=== PATIENT | female | born 1990 | race Caucasian/White ===

== ENCOUNTER 2024-08-01 11:25 | Emergency (ER) | payer OTHER, SELFPAY ==
--- NOTE | 2024-08-01 11:26 | ED.EAR ---
HPI - Ear Problem General Chief complaint: Ear Stated complaint: Ear Paim Time Seen by Provider: 08/01/24 11:26 Source: patient Mode of arrival: ambulatory Limitations: no limitations History of Present Illness HPI Narrative: Taisha is a 34-year-old female patient presenting to the clinic today with complaints sinus pressure, congestion, bilateral ear pain left greater than right and pain to the left jaw. She reports symptoms have been going on for over the past week. States she had fever last week but that has resolved. Recently has had her wisdom teeth cut out. Related Data Home Medications Medication Instructions Recorded Confirmed Vitamin B 1 tab-cap PO DAILY 08/01/24 08/01/24 Vitamin D 1 tab-cap PO DAILY 08/01/24 08/01/24 melatonin 5 mg tablet 5 mg PO HS PRN Sleep 08/01/24 08/01/24 Allergies Allergy/AdvReac Type Severity Reaction Status Date / Time amoxicillin [From Augmentin] Allergy Rash Verified 08/01/24 11:35 clavulanic acid Allergy Rash Verified 08/01/24 11:35 [From Augmentin] Review of Systems Review of Systems: Pertinent positives per HPI. Patient denies any rash, headache, visual changes, dizziness, shortness of breath, chest pain, palpitations, nausea, vomiting, diarrhea, constipation, abdominal pain, or any urinary issues. PMFSH Comments At the time of my signature, I reviewed and agree with the nursing past medical, surgical, social, and family history. There is no relevant family history pertinent to the patient complaint. Exam Narrative: General: Well-developed, well nourished, in no apparent distress Head: Normocephalic, atraumatic Eyes: Pupils equally round and reactive to light bilaterally, EOM intact, sclera and conjunctive clear, no discharge, lids normal Ears: TMs intact and clear, ear canals clear, no drainage, grossly hearing normal. Nose: Nares patent, clear nasal discharge, no inflammation, no sinus tenderness. Mouth: Oral pharynx without lesions or masses, poor dentition, MMM. Swelling of the gum/jaw with what appears to be a remaining pieces of her tooth to the left posterior jaw Neck: Supple, trachea midline, no enlargement of anterior or posterior cervical nodes, no thyroid masses or goiter palpable. Cardio: Regular rate and rhythm, s1 and s2 normal, no murmur appreciated. Resp: Clear to auscultation bilaterally, no rhonchi, rales, wheezing or rubs Course Course Emergency Course: Portions of this record may have been created with voice recognition software. Level of Care: Express Care Visit Vital Signs Vital signs: Vital signs reviewed Medical Decision Making MDM Narrative Medical decision making narrative: At the time of visit patient is resting comfortably on the exam table. Patient appears to be nontoxic. Plan: I suspect patient has a dental infection/URI. Will place patient on clindamycin. Supportive measures were discussed with the patient and they voiced understanding discharge instructions and agrees to treatment plan. Return precautions reviewed Differential Diagnosis Differential Diagnosis: Otitis media, otitis externa, eustachian tube dysfunction, cerumen impaction, upper respiratory infection, serous otitis Discharge Plan Discharge Clinical Impression: Dental infection URI (upper respiratory infection) Qualifiers: URI type: unspecified URI Qualified Code(s): J06.9 - Acute upper respiratory infection, unspecified Patient Disposition: Home, Self-Care Condition: Stable Instructions: Antibiotic Form, Dental Abscess (ED), Cold Symptoms (ED) Additional Instructions: Take any prescribed medications only as directed-clindamycin May apply warm moist compress to the eye to help alleviate discomfort Continue allergy drops as discussed-may also use artificial tears as needed May use heating pad to alleviate pain Increase fluids and stay well hydrated Tylenol/motrin for pain/fever Flonase and OTC antihistamines as
[2024-08-01 11:34] VITALS: BP 130/71; PULSE 74; RESP 16; TEMP 36.8; O2SAT 100
[2024-08-01 11:39] VITALS: BP 130/71; PULSE 74; RESP 16; TEMP 36.8; O2SAT 100
== END 2024-08-01 11:51 | disposition home or self-care (01) ==
LOC: EXPGOSH 11:31
PROVIDERS: Emergency Provider Nurse Practitioner Family
DX: K04.7 Periapical abscess without sinus (principal); J06.9 Acute upper respiratory infection, unspecified
CPT/HCPCS: 99213; G0463

== ENCOUNTER 2024-08-17 09:53 | Outpatient (CLI) | payer OTHER, SELFPAY ==
--- NOTE | ~2024-08-17 | US_ITS ---
Left parotid the gland ULTRASOUND Ordering provider: Rashi Castelan, FLORIN History: . LEFT SIDE HARD FIXED LYMPHNODE . Comparison: None. FINDINGS/impression: Left parotid the gland measures 5.1 x 4.2 x 1.3 cm. mixed echogenicity areas are seen in the parotid the gland and with echogenic center and peripheral hypoechoic appearance which may be a lymph nodes. Masses are less likely. Follow-up advised. Reviewed, dictated and finalized at location A.
== END 2024-08-17 09:54 | disposition home or self-care (01) ==
LOC: CHSIMG 09:56
PROVIDERS: PCP Physician Assistant; Visit Provider Physician Assistant
DX: R59.0 Localized enlarged lymph nodes (principal)
CPT/HCPCS: 76536

== ENCOUNTER 2025-04-12 09:51 | Emergency (ER) | payer OTHER, SELFPAY ==
[2025-04-12 09:55] VITALS: BP 118/80; PULSE 99; RESP 16; TEMP 37; O2SAT 100
--- NOTE | 2025-04-12 10:22 | ED_ITS ---
HPI - Skin/Abscess/Foreign Bdy General Chief complaint: Skin/Abscess/Foreign Body Stated complaint: sent by urgent care for abscess Source: patient Mode of arrival: ambulatory Limitations: no limitations History of Present Illness HPI narrative: 34-year-old female with scoliosis status post surgery, status post cholecystectomy with bloating and intermittent diarrhea, diggs colitis 3 years ago, C diff colitis, salmonella gastroenteritis, Gallstone pancreatitis status post ERCP, Hemorrhoids, HPV with anal tags, positive ELIZABETH, psoriasis,presents with 1 month history of -- perianal abscess at 5 O clock position. No pus discharge. She has blood staining of her stool. She also has blood on her wipes. She has had this for 1 month. -- Fever with chills in the past 2 days. Fever with a T-max of 101? patient was prescribed Humira for questionable Psoriatic arthritis by her dispatcher motor vehicle who she has been seeing for the past 3 months MD complaint: other ( perirectal abscess) Onset (ago): month(s) ( 1 month) Tetanus up to date: yes Location: buttocks ( perirectal abscess) Severity: moderate Quality: aching Pain Consistency: constant Relieving factors: none Exacerbating factors: none Context: none Associated symptoms: fever Treatments prior to arrival: none Related Data Home Medications ?Medication ?Instructions ?Recorded ?Confirmed ?Last Taken ?Type Vitamin B 1 tab-cap PO DAILY 08/01/24 08/01/24 Unknown History Vitamin D 1 tab-cap PO DAILY 08/01/24 08/01/24 Unknown History melatonin 5 mg tablet 5 mg PO HS PRN Sleep 08/01/24 08/01/24 Unknown History Allergies Allergy/AdvReac Type Severity Reaction Status Date / Time amoxicillin (From Augmentin) Allergy Rash Verified 04/12/25 10:15 clavulanic acid (From Allergy Rash Verified 04/12/25 10:15 Augmentin) Review of Systems 2 Review of Systems: All systems reviewed & are unremarkable except as noted in HPI and below Constitutional: Constitutional: Reports as per HPI and Reports no additional constitutional complaints Eyes: Eyes: Reports as per HPI and Reports no additional eye complaints ENT: Reports system reviewed and no additional complaints, except as documented and Reports as per HPI Cardiovascular: Cardiovascular: Reports as per HPI and Reports no additional cardiovascular complaints Respiratory: Respiratory: Reports as per HPI and Reports no additional respiratory complaints Gastrointestinal: Gastrointestinal: Reports as per HPI and Reports no additional gastrointestinal complaints Comments: diarrhea alternating with constipation Genitourinary: Genitourinary: Reports no additional female genitourinary complaints and Reports dysuria Musculoskeletal: Musculoskeletal: Reports no additional musculoskeletal complaints and Reports as per HPI Integumentary/Breasts: Skin/Breast: Reports system reviewed and no additional complaints, except as docu and Reports as per HPI Comments: left perirectal abscess at 5 o'clock position Neurologic: Reports system reviewed and no additional complaints, except as documented and Reports as per HPI Psychiatric: Psychiatric: Reports as per HPI Endocrine: Endocrine: Reports no additional endocrine complaints and Reports as per HPI Hematologic/Lymphatic: Hematologic/Lymphatic: Reports no additional hematologic/lymphatic complaints and Reports as per HPI Allergic/Immunologic: Allergic/Immunologic: Reports no additional allergic/immunologic complaints and Reports as per HPI [facility] Past Medical History Medical History (Updated 04/12/25 @ 13:45 by Bhupendra England MD) Psoriasis Pancolitis Hemorrhoids HPV (human papilloma virus) anogenital infection Positive ELIZABETH (antinuclear antibody) Family History Family History (Updated 04/12/25 @ 10:52 by Bhupendra England MD) Son Ulcerative colitis Social History Social History (Updated 04/12/25 @ 10:51 by Bhupendra England MD) Social History: smoker Exam 2 Narrative: vitals are stable Const: Nutritional Appearance: thin Orientation/consciousness: patient oriented x3 Limitations: no limitations HENMT: Head: normal to inspection Ears: external ears normal F tavares/Nose/Sinus: Normal external nose present Face and sinus: normal facial exam Mouth: Yes Normal oral and palatal mucosa present Throat: posterior oropharynx normal Eyes: Conjunctivae: conjunctivae normal Pupils: Equal, round and reactive pupils present EOM: EOMs intact bilaterally Direct Ophthalmoscopy: no photophobia Neck: Neck: normal visual inspection, no lymphadenopathy and no meningeal signs Chest: Chest palpation & inspection: normal inspection of the chest Resp: Effort & Inspection: normal respiratory effort Auscultation: clear to auscultation bilaterally Cardio: Rate: regular rate Rhythm: regular rhythm GI: GI Palp: Yes Soft to palpation Auscultation: normal bowel sounds O ther: no tenderness/ rigidity / rebound. Perirectal abscess measuring 3 cm at 5 O Clock position. Tender on palpation. Anal tags : General: Yes no CVA tenderness Back/Spine/Pelvis: Back: no CVA tenderness Skin: General skin exam: normal color Rashes: no rashes Wounds: no wounds Neuro: General: patient oriented x3, moves all extremities, no meningeal signs, no focal motor deficits and CN's II-XI intact bilaterally Speech: n ormal speech Course Course Emergency Course: perianal abscess Vital Signs Vital signs: Vital Signs Temperature 37.0 C 04/12/25 09:55 Pulse Rate 99 04/12/25 09:55 Respiratory Rate 16 04/12/25 09:55 Blood Pressure 118/80 04/12/25 09:55 Pulse Oximetry 100 04/12/25 09:55 Oxygen Delivery Room Air 04/12/25 09:55 Temperature 37.0 C 04/12/25 13:40 Pulse Rate 88 04/12/25 13:40 Respiratory Rate 16 04/12/25 13:40 Blood Pressure 130/81 04/12/25 13:40 Pulse Oximetry 100 04/12/25 13:40 Oxygen Delivery Room Air 04/12/25 13:40 MDM - Skin/Abscess/Foreign Bdy MDM Narrative Medical decision making narrative: perianal abscess Differential Diagnosis Differential diagnosis: Likely abscess of skin or subcutaneous tissue and eczema Medical Records Attestation: I reviewed the patient's medical records. Lab Data Attestation: I reviewed the patient's lab results. 04/12/25 11:14 04/12/25 11:14 Labs: Lab Results 04/12/25 Range/Units 11:14 WBC 9.4 (4.8-10.8) K/mm3 RBC 5.28 (4.20-5.40) M/mm3 Hgb 15.2 H (12.0-15.0) g/dL Hct 46.3 (35.0-49.0) % MCV 87.7 (78.0-102.0) fL MCH 28.8 (27.0-31.0) pg MCHC 32.8 (32-36) g/dL RDW 12.0 (11.6-14.4) % Plt Count 410 (150-420) K/mm3 MPV 9.3 (9.2-11.8) fl Immature Gran % (Auto) 0.2 H (0.0-0.0) % Neut % (Auto) 75.3 H (50.0-70.0) % Lymph % (Auto) 19.5 (18.0-42.0) % [place] % (Auto) 4.3 (2.0-11.0) % Eos % (Auto) 0.2 L (1.0-6.0) % Baso % (Auto) 0.5 (0.0-1.0) % Lymph # (Auto) 1.82 (1.10-4.50) K/mm3 [place] # (Auto) 0.40 (0.10-0.90) K/mm3 Eos # (Auto) 0.02 (0.02-0.50) K/mm3 Baso # (Auto) 0.05 (0.00-0.10) K/mm3 Abs Immat Gran (auto) 0.02 H (0.00-0.00) K/mm3 Absolute Neuts (auto) 7.04 (1.70-7.20) K/mm3 Absolute Nucleated RBC 0.00 (0.00-0.00) K/mm3 Nucleated RBC % 0.0 (0-0.0) % PT 10.9 (9.50-12.1) Seconds INR 1.0 APTT 28.1 (23.9-30.70) Sec Sodium 139 (137-145) mmol/L Potassium 4.3 (3.4-5.0) mmol/L Chloride 106 (98-107) mmol/L Carbon Dioxide 28 (22-30) mmol/L Anion Gap 5 (4-12) mmol/L BUN 6 L (7-17) mg/dL Creatinine 0.72 (0.7-1.0) mg/dL Estim Creat Clear Calc 75 ml/min Estimated GFR > 60 (59 - ) Glucose 91 (65-110) mg/dL Calculated Osmolality 285 (285-295) mOsm/kg Lactic Acid 1.0 (0.4-2.0) mmol/L Uric Acid 3.3 (2.5-7.5) mg/dL Calcium 9.0 (8.4-10.2) mg/dL Magnesium 2.3 (1.6-2.3) mg/dL Total Bilirubin 0.7 (0.2-1.3) mg/dL AST 23 (14-36) U/L ALT 11 (6-35) U/L Alkaline Phosphatase 113 (38-126) U/L C-Reactive Protein 1.3 H (<1.0) mg/dL Total Protein 8.1 (6.3-8.2) g/dL Albumin 4.5 (3.5-5.1) g/dL Lipase 58 (23-300) U/L TSH 0.957 (0.465-4.680) uIU/mL Urine Color Light yellow (Yellow) Urine Appearance Clear (Clear) Urine pH 5.5 (5.0-8.0) Ur Specific [place] <= 1.005 L (1.010-1.020) Urine Protein Negative (Negative) Urine Glucose (UA) Negative (Negative) Urine Ketones Negative (Negative) Ur Blood (Man) 1+ H (Negative) Urine Nitrate Negative (Negative) Urine Bilirubin Negative (Negative) Urine Urobilinogen 0.2 (0.2-1.0) mg/dL Leukocyte Esterase Rfl Negative (Negative) GARY/UL Urine RBC 0-2 (0-2) /hpf Urine WBC 0-3 (0-3) /hpf Ur Squamous Epith Cells Few (Few) /hpf Urine Bacteria Trace (None) /hpf Urine Test Negative Discharge Plan Discharge Clinical Impression: Abscess, perianal Patient Disposition: Home Condition: Stable Instructions: Antibiotic Form, Anorectal Abscess and Anal Fistula (ED) Patient Language: Argentine Prescriptions: New metronidazole 500 mg tablet 500 mg PO Q8H 7 Days Qty: 21 0RF ciprofloxacin HCl [Cipro] 500 mg tablet 500 mg PO Q12H Qty: 14 0RF No Action melatonin 5 mg Tablet 5 mg PO HS PRN (Reason: Sleep) Vitamin D 1 tab-cap PO DAILY Vitamin B 1 tab-cap PO DAILY clindamycin HCl 300 mg capsule 300 mg PO Q8H 10 Days Qty: 30 0RF Follow-up/Referrals: Annelise,FLORIN Meier [Primary Care Provider] - Time of Disposition: 13:45
--- OUTSIDE RECORDS SUMMARY | 2025-04-12 10:31 | XMS_ITS | Clinical Summary ---
Author Organization [facility] Address [address] [place] [address] Care Team Providers Care Master Lay Out Specialist Name Role Phone Kartik Mejia DO Primary Care Provider [phone] Source Comments [facility] and [facility] Practices is amultiple site organization consisting of ambulatory clinics and hospital sitesin [place], [place], [place] and [place]. This disclosure is being madepursuant to the Care Everywhere program and may not contain all information available regarding this patient. Last updated 18.[facility] Allergies Active Allergy Reactions Criticality Noted Date Comments Augmentin Urticaria Medium 08/09/2022 Bactrim Ds Other,Rash,Swelling Medium 12/05/2024 Medications * Be aware that medications may not be up to date on this document. Alwaysverify current medications with the patient. Coenzyme Q10 (CoQ10) 100 MG 100 (one hundred) mg Active Cyanocobalamin (Vitamin B 12) 100 MCG Active Bonita-3 Fatty Acids (fish oil) 1000 MG capsule Fish Oil 1000 MG Oral Capsule QTY: 0 capsule Days: 0 Refills: 0 Written: 01/21/22 Patient Instructions: 2 Active vitamin D, ergocalciferol , (Drisdol) 1.25 MG (79609 UT) capsule Take 1 (one) capsule by mouth Active Adalimumab-ada z (Hyrimoz) 40 MG/0.4ML injectionIndic ations:Psoriat ic arthritis (HCC) Inject 0.4 mL subcutaneously every 14 days 0.8 mL 5 5 Active Encounters Date Type Department Care Team Description 02/10/2025 Telephone [facility] - Rheumatology [address], [address] [place] [address] Alana Araiza MD Medication Management (Travis) from Last 3 Months Social History Tobacco Use Types Packs/Day Years Used Date Smoking Tobacco: Every Day Cigarettes Smokeless Tobacco: Never Tobacco Cessation:Ready to Q uit: Not Asked; Counseling Given: Not Answered Alcohol Use Standard Drinks/Week Comments Never 0 (1 standard drink = 0.6 oz pur e alcohol) PHQ-2 Answer Date Recorded Patient Health Questionnaire-2 Score 0 12/05/2024 Comments No Sex and Gender Information Value Date Recorded Sex Assigned at Not on file Legal Sex Female 5:38 AM SAFE AND VAULT SERVICE MECHANIC Gender Identity Not on file Sexual Orientation Not on file Last Filed Vital Signs Vital Sign Reading Time Taken Comments Blood Pressure 108/78 12/05/2024 2:44 PM SAFE AND VAULT SERVICE MECHANIC Pulse 90 12/05/2024 2:44 PM SAFE AND VAULT SERVICE MECHANIC Temperature 37.9 C (100.2 F) 12/05/2024 2:44 PM SAFE AND VAULT SERVICE MECHANIC Respiratory Rate 16 12/05/2024 2:44 PM SAFE AND VAULT SERVICE MECHANIC Oxygen Saturation 100% 12/05/2024 2:44 PM SAFE AND VAULT SERVICE MECHANIC Inhaled Oxygen Concentration - - Weight 52.4 kg (115 lb 9.6 oz) 12/05/2024 2:44 P M SAFE AND VAULT SERVICE MECHANIC Height 172.7 cm (5' 8 ) 08/09/2022 3:45 PM CDT Body Mass Index 17.58 08/09/2022 3:45 PM CDT Plan of Treatment Health Maintenance Due Date Last Done Comments PAP SMEAR 1988 HIV SCREENING 2003 DTAP/TDAP/TD VACCINES (1 - Tdap) 2007 HEPATITIS B VACCINE (1 of 3 - 19+ 3-dose series) 2007 PNEUMOCOCCAL VACCINE (1 of 2 - PCV) 2007 COVID-19 VACCINE ( - 2023-2 5 season) 2024 INFLUENZA VACCINE (Season Ended) 2025 08/24/20 19 ZOSTER VACCINE (1 of 2) 2038 DEPRESSION SCREENING Completed 12/05/2024 HEPATITIS C SCREENING Completed 12/05/2024 HIB VACCINE Aged Out No longer eligi ble based on patient's age to complete this topic HPV VACCINE Aged Out No longer eligi ble based on patient's age to complete this topic MENINGOCOCCAL (Group B) VACC INE SHARED DECISION-MAKING Aged Out No longer eligibl e based on patient's age to complete this topic MENINGOCOCCAL GROUPS A/C/Y/W VACCINE Aged Out No longer eligible b ased on patient's age to complete this topic Procedures Procedure Name Priority Date/Time Associated Diagnosis Comments HEPATITIS SCREEN ACUTE ([facility]) Routine 12/05/2024 4:24 PM SAFE AND VAULT SERVICE MECHANIC Inflammatory arthritis from Last 3 Months or Most Recently Relevant to Health Maintenance Results * HEPATITIS SCREEN ACUTE ([facility]) (12/05/2024 4:24 PM SAFE AND VAULT SERVICE MECHANIC) Hepatitis A Virus Antibody IgM Non Reactive Non Reactive [facility] ACCOUNT BILL Hepatitis B Virus Surface Antigen Non Reactive Non Reactive [facility] ACCOUNT BILL Hepatitis B Core Virus Antibody IgM Non Reactive Non Reactive [facility] ACCOUNT BILL Hepatitis C Antibody Non Reactive Non Reactive [facility] ACCOUNT BILL Comment: Non Reactive - Antibodies to Hepatitis C virus (HCV) were no t detected, result does not exclude early acute HCV infection. Performed at: 02 - [facility] [address] [id number] Scientific Manager: Mohit Rodriguez PhD, Phone: [phone] Interpretation Comment [facility] ACCOUNT BILL Comment: Not infected with HCV unless early or acute infection is suspected (which may be delayed in an immunocompromised individual), or other evidence exists to indicate HCV infection. Blood BLOOD SPECIMEN / Unknown 12/05/2024 4:24 PM SAFE AND VAULT SERVICE MECHANIC 12/05/2024 Narrative [facility] ACCOUNT BILL - 12/05/2024 11:06 PM SAFE AND VAULT SERVICE MECHANIC Performed at: - [facility] [place] [address] [place], [place] [id number] Scientific Manager: Justino Deutsch MD, Phone: [phone] us Alana Araiza MD LAB - CHEMISTRY ORDERABLES Final Result [facility] ACCOUNT BILL [address] [place] [address] from Last 3 Months or Most Recently Relevant to Health Maintenance [place] [address] [address] [place] [address] MEDICAID - OUT OF [place] [address] [place] [address] [facility] [employer] MEDICAID - OUT [place] [address] [place] [address] Care Teams Master Lay Out Specialist Relationship Specialty Start Date End Date Kartik Mejia DO [address] [place] [phone] PCP - General Internal Medicine 08/09/22
--- OUTSIDE RECORDS SUMMARY | 2025-04-12 10:31 | XMS_ITS | Clinical Summary ---
Author Organization [facility] Address [address] [place] [address] Phone Care Team Providers Care Photonics Engineering Technologist Name Role Phone Kartik Mejia DO Primary Care Provider Allergies Active Allergy Reactions Criticality Noted Date Comments Amoxicillin-Pot Clavulanate Rash 01/03/20 17 Medications sorbitol 70 % Solution Take 30 mL by mouth 2 times daily as needed for Other (constipation). 300 mL 0 6 Active Additional Information Patient not taking.Reported on 08/31/2021 varenicline (CHANTIX) 1 MG Tablet Take 1 mg by mouth 2 times daily. Active HYDROcodone-tavares taminophen (NORCO) 10-325 MG Tablet Take 1 Tab by mouth 2 times daily as needed for Pain. Active PARoxetine (PAXIL) 20 MG Tablet Take 20 mg by mouth daily. Active ergocalciferol (VITAMIN D) 36937 UNIT CapsuleIndicati ons:MONDAYS Take 50,000 Units by mouth once a week. Indications: MONDAYS Active azithromycin (ZITHROMAX Z-JACKIE) 250 MG Tablet 2 tab(s) daily for 1 day, then 1 tab(s) daily for days 2-5. 6 Tab 0 7 Active Additional Information Patient not taking.Reported on 08/31/2021 fluticasone (FLONASE) 50 MCG/ACT Suspension 2 Sprays by Nasal route daily. Use in each nostril as directed. 1 Bottle 2 7 Active Additional Information Patient not taking.Reported on 08/31/2021 predniSONE (DELTASONE) 50 MG Tablet Take 1 Tab by mouth daily. 5 Tab 9 Active Additional Information Patient not taking.Reported on 08/31/2021 oxyCODONE-aceta minophen (PERCOCET) 5-325 MG Tablet Take 1-2 Tabs by mouth every 6 hours as needed for Severe pain. 30 Tab 9 Active Additional Information Patient not taking.Reported on 08/31/2021 ondansetron (ZOFRAN) 4 MG Tablet Take 1 Tablet by mouth every 8 hours as needed for Nausea - 1st line. 10 Tablet 2 Active dicyclomine (BENTYL) 20 MG Tablet Take 1 Tablet by mouth every 6 hours as needed for Other (abdominal cramping). 20 Tablet 2 Active Active Problems No known active problems Immunizations Immunization Administration Dates Next Due Influenza Vaccine, Quadrivalent, PF 08/24/2019 Social History Tobacco Use Types Packs/Day Years Used Date Smoking Tobacco: Every Day Cigarettes Smokeless Tobacco: Never Alcohol Use Standard Drinks/Week Comments No 0 (1 standard drink = 0.6 oz pur e alcohol) Comments Unknown Sex and Gender Information Value Date Recorded Sex Assigned at Not on file Legal Sex Female 9:04 PM CDT Gender Identity Not on file Sexual Orientation Not on file Last Filed Vital Signs Vital Sign Reading Time Taken Comments Blood Pressure 116/75 05/27/2022 3:21 PM CDT Pulse 70 05/27/2022 3:21 PM CDT Temperature 36.1 C (97 F) 05/27/2022 10:37 AM CDT Respiratory Rate 16 05/27/2022 3:21 PM CDT Oxygen Saturation 97% 05/27/2022 3:21 PM CDT Inhaled Oxygen Concentration - - Weight 69.4 kg (153 lb) 05/27/2022 10:37 AM CDT Height 172.7 cm (5' 8 ) 05/27/2022 10:37 AM CDT Body Mass Index 23.26 05/27/2022 10:37 AM CDT Plan of Treatment Health Maintenance Due Date Last Done Comments Hepatitis C Virus (HCV) Screening 1990 TdaP Immunization 1988 SARS-COV-2 Immunization ( season) 2024 Influenza Immunization (Season Ended) 2025 08/24/2019 Respiratory Syncytial Virus (RSV) Immunization (Adult) (1 - 1-dose 75+ series) 2063 Hepatitis B Immunization Completed 999, 01/31/1999, 12/13/1998, Additional history exists DTaP/Tdap/Td Immunization Discontinued 2003, 09/05/1993, 01/17/1992, Additional history exists Human Papillomavirus (HPV) Immunization Aged Out No longer eligible based on patient's age to complete this topic Meningococcal Immunization (ACWY) Aged Out No longer eligible based on patient's age to complete this topic Pneumococcal Immunization Combined Aged Out No longer eligible based on patient's age to complete this topic Rotavirus Immunization Aged Out No lo nger eligible based on patient's age to complete this topic Insurance [facility] Care Teams Photonics Engineering Technologist Relationship Specialty Start Date End Date Kartik Mejia DO [address] [place] [phone] PCP - General Internal Medicine 12/03/15
--- OUTSIDE RECORDS SUMMARY | 2025-04-12 10:31 | XMS_ITS | Clinical Summary ---
Author Organization [facility] Address [address] [place] [address] Care Team Providers Care Financial Operations Analyst Name Role Phone Kartik Mejia DO Primary Care Provider Allergies Active Allergy Reactions Criticality Noted Date Comments Amoxicillin-Pot Clavulanate Rash Medium 08/07/20 22 Medications apple cider vinegar 500 mg tablet Apple Cider Vinegar 500 MG Oral Tablet QTY: 0 tablet Days: 0 Refills: 0 Written: 01/21/22 Patient Instructions: 2 Active omega-3 fatty acids 1,000 mg capsule Fish Oil 1000 MG Oral Capsule QTY: 0 capsule Days: 0 Refills: 0 Written: 01/21/22 Patient Instructions: 2 Active cholecalciferol (VITAMIN D-3) 400 unit capsule [facility] Vitamin D3 25 MCG (1000 UT) Oral Tablet Chewable QTY: 0 tablet Days: 0 Refills: 0 Written: 01/21/22 Patient Instructions: 2 Active 25/iron fum/folic/dha (-1 ORAL) Classic 28-0.8 MG Oral Tablet QTY: 0 tablet Days: 0 Refills: 0 Written: 01/21/22 Patient Instructions: 2 Active ergocalciferol (VITAMIN D) 50,000 unit capsule Take 1 capsule (50,000 Units total) by mouth once a week Active fluconazole (DIFLUCAN) 150 mg tablet Take 150 mg by mouth once 2 Active fluticasone propionate (FLONASE) 50 mcg/actuation nasal spray Administer 2 sprays into affected nostril(s) daily 7 Active nicotine (NICODERM CQ) 21 mg USE 1 PATCH DAILY X6 WEEKS. CALL FOR DECREASED DOSE BEFORE RUNNING OUT. 2 Active progesterone (PROMETRIUM) [address] ONE TABLET VAGINALLY EVERY NIGHT STARTING 5 DAYS AFTER OVULATION. 90 capsule 1 2 Active hydrOXYzine (ATARAX) 10 mg tablet TAKE 1 TO 2 TABLETS BY MOUTH DAILY FOR ITCHING 3 Active CYANOCOBALAMIN, VITAMIN B-12, INJ 3 Active azithromycin (ZITHROMAX) 250 mg tabletIndicatio ns:Bacterial URI Take two tabs first day, then one tab daily x 4 days 6 tablet 3 Active Active Problems Problem Noted Date Diagnosed Date Carpal tunnel syndrome, bilateral upper limbs Infertility, female 12/24/2022 Overview (12/24/2022): Recommend proceeding with S.A. for , referal name given. Also, will check a HSG with hx of colitis. Call on cycle to arrange. Vitamin D deficiency 05/03/2019 Acute sinusitis 09/25/2012 Overview (05/12/2023): Note: Unchanged Anxiety 09/25/2012 Overview (05/12/2023): Note: Unchanged Cardiovascular symptoms 09/25/2012 Overview (05/12/2023): Note: Unchanged Backache 09/25/2012 Overview (05/12/2023): Note: Unchanged Chest pain 09/25/2012 Overview (05/12/2023): Note: Unchanged - LEFT RIBCAGE STRAIN Depression 04/30/2009 Encounters Date Type Department Care Team Description 04/10/2025 3:00 PM CDT Office Visit [facility] [place] [address] [place] [place] [address] Kimberly Cardenas, BUSINESS AGENT Perianal abscess (Primary Dx) from Last 3 Months Surgical History Surgery Date Site/Laterality Comments SPINE SURGERY 11/23/2002 - 11/22/2003 CHOLECYSTECTOMY 11/23/2013 - 11/22/2014 Medical History Medical History Date Comments Scoliosis Anemia Irritable bowel syndrome Anxiety Family History Medical History Relation Name Comments Breast cancer Paternal Grandmother Colon cancer Neg Hx Ovarian cancer Neg Hx Uterine cancer Neg Hx Relation Name Status Comments Paternal Grandmother Social History Tobacco Use Types Packs/Day Years Used Date Smoking Tobacco: Every Day Cigarettes Smokeless Tobacco: Never Tobacco Cessation:Ready to Q uit: Not Asked; Counseling Given: Not Answered AUDIT-C Answer Date Recorded Q1: How often do you have a drink containing alc ohol? 2-4 times a month 09/23/2022 Q2: How many drinks containi ng alcohol do you have on a typical day when you are drinking? 1 or 2 09/23/2022 Q3: How often do you have si x or more drinks on one occasion? 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 2013 SAB 14w 0d SAB Complications:Twin gestation in first trimester 05/2018 SAB 4w0 d SAB 2019 SAB 4w0 d SAB 05/2022 SAB 4w0 d SAB 06/2022 SAB 4w0 d SAB 07/2022 SAB 4w0 d SAB Last Filed Vital Signs Vital Sign Reading Time Taken Comments Blood Pressure 102/70 04/10/2025 2:43 PM CDT Pulse 98 04/10/2025 2:43 PM CDT Temperature 37 C (98.6 F) 04/10/2025 2:43 PM CDT Respiratory Rate 18 04/10/2025 2:43 PM CDT Oxygen Saturation 98% 04/10/2025 2:43 PM CDT Inhaled Oxygen Concentration - - Weight 49.9 kg (110 lb) 04/10/2025 2:43 PM CDT Height 172.7 cm (5' 8 ) 04/10/2025 2:43 PM CDT Body Mass Index 16.73 04/10/2025 2:43 PM CDT Plan of Treatment Health Maintenance Due Date Last Done Comments Depression Screening 1988 Hepatitis C Screening 1988 Varicella Vaccines (1 of 2 - 13+ 2-dose series) 2001 DTaP/Tdap/Td Vaccine (6 - Tdap) 07/09/2004 07/08/2004, 09/05/1993, 01/17/1992, Additional history exists Pneumococcal vaccine <65 (1 of 2 - PCV) 2007 Cervical Cancer Screening 08/12/2023 08/12/2022 Regular Well Visit/Exam 18-64 08/12/2023 08/12/2022 Influenza Vaccine (Season Ended) 2025 08/24/2019 Hepatitis B Screening Completed 07/04/1999 , 01/31/1999, 12/13/1998, Additional history exists HPV Vaccines Aged Out No longer eligi ble based on patient's age to complete this topic Medical Devices Explanted Type Area Netbackup Administrator Device Identifier Shelf Expiration Date Model / Serial / Lot [employer] Parks Flexi-Stent 4fr 2cm Small Pigtail Straight Flexible .025 [id number] - [id number] Explanted:Qty : 1 on 09/23/2022 at [facility] Stent N/A: Pancreas [employer] 03/22/2027 [id number] / / [id number] Procedures Procedure Name Priority Date/Time Associated Diagnosis Comments PAP AND HIGH RISK HPV, REFLEX TO GENOTYPING Routine 08/12/2022 10:04 AM CDT Encounter for gynecological examination with abnormal finding from Last 3 Months or Most Recently Relevant to Health Maintenance Results * Pap and High Risk HPV, reflex to Genotyping (08/12/2022 10:04 AM CDT) Clinical indication Comment [facility] Comment:NEGATIVE FOR INTRAEP ITHELIAL LESION OR MALIGNANCY. Specimen adequacy: Comment [facility] Comment: Satisfactory for evaluation. Endocervical and/or squamous metaplastic cells (endocervical component) are present. Areas of partially obscuring blood are present. Clinician provided ICD10 Comment [facility] Comment:Z01.411 Performed by Comment [facility] Comment:[facility] Falk [facility] Licensed Life And Health Agent (ASCP) . . [facility] Note: Comment [facility] Comment: The Pap smear is a screening test designed to aid in the detection of premalignant and malignant conditions of the uterine cervix. It is not a diagnostic procedure and should not be used as the sole means of detecting cervical cancer. Both false-positive and false-negative reports do occur. Test methodology Comment [facility] Comment: This liquid based ThinPrep(R) pap test was screened with the use of an image guided system. HPV Aptima Negative Negative [facility] - 01 Comment: This nucleic acid amplification test detects fourteen high-risk HPV types (16,18,31,33,35,39,45,51,52,56,58,59,66,68) without differentiation. Thin prep 08/12/2022 10:0 4 AM CDT 08/13/2022 Narrative [facility] - 08/18/2022 10:09 AM CDT Performed at: - [facility] [id number] Grab Setter: Ellyn Arriaga MD, Phone: [phone] Performed at: - [facility] [id number] Grab Setter: Ellyn Arriaga MD, Phone: [phone] Geovani Coyne MD LAB CYTOLOGY ORDERABLES Fi nal Result [facility] - from Last 3 Months or Most Recently Relevant to Health Maintenance Insurance [facility] Address: [address] [place] [address] [facility] Address: [place] [address] [facility]/PPO Address: [facility] [address] [place] [address] Advance Directives For more information, please contact: [phone] * Full Code (Latest Code Status on File) Date Activated Date Inactivated Comments 09/23/2022 9:18 AM 09/23/2022 4:56 PM Care Teams Financial Operations Analyst Relationship Specialty Start Date End Date Kartik Mejia DO PCP - General 11/11/17
--- OUTSIDE RECORDS SUMMARY | 2025-04-12 10:31 | XMS_ITS | Data Portability ---
Author Organization [facility] Address [address] [place] [address] Care Team Providers Care Deputy Clerk Of Court Name Role Phone NAVID CASTELAN Primary Care Provider Assessment No assessment recorded. Plan of Treatment Reminders Order Date Submit Date Provider Last Modified By Organization Details Last Modified Time Details Appointments None recorded. Lab influenza virus A + B + SARS-CoV-2 (COVID19) Ag panel, rapid IA, upper respirator y specimen 2023 pardeep In-Office Order, Internal Use Only DO Not Attach Compendium DO Not Attach Compendium, Do Not Delete/merge, [id number] 16:45:57 Referral None recorded. Procedures None recorded. Surgeries None recorded. Imaging XR, shoulder 2024 025 [facility], [address] [place], [address], 5 13:06:22 Medication Orders cyclobenza suman 10 mg tablet 2023 [facility] #[id number], [address] [place], [address], 4 18:38:50 azithromyc in 500 mg tablet 2023 [facility][id number], [address] [place], [address], 4 18:25:54 Patient TargetsNo targets recorded. Patient Instructions Encounter Date Encounter Id Patient Instructions Last Modified By Organization Details Last Modified Time 08/18/2024 [id number] eating healthy foods: care instructions jney Not available 08/18/2024 15:53:57 08/31/2024 [id number] cough: care instructions jnanney Not available 08/31/2024 16:43:04 upper respirator y infection (cold): care instructions jnanney Not available 08/31/2024 16:43:04 01/12/2025 [id number] eating healthy foods: care instructions jney Not available 01/12/2025 15:13:50 Reason for Referral None Reported. Results Created Date Observation Date Name Description Value Unit Range Abnormal Flag Note LastModifiedBy Organization Detail LastModifiedTime 08/04/2008/05/2024 TSH+F REE T4 TSH 1.540 uIU/m L 0.450- 4.500 Not Available [address], [address], 08/05/2024 10:13:36 08/04/20 24 08/05/2024 TSH+F REE T4 T4,free(dire ct) 1.40 NG/dL 0.82-1 .77 Not Available [address], [address], 08/05/2024 10:13:36 08/04/20 24 08/05/2024 LIPID PANEL cholesterol, total 185 mg/dL 100-19 9 Not Available [address], [address], 08/05/2024 10:13:37 08/04/20 24 08/05/2024 LIPID PANEL triglyceride s 92 mg/dL 0-149 Not Available [address], [address], 08/05/2024 10:13:37 08/04/20 24 08/05/2024 LIPID PANEL HDL cholesterol 39 mg/dL >39 below low normal Not Available [address], [address], 08/05/2024 10:13:37 08/04/20 24 08/05/2024 LIPID PANEL VLDL cholesterol kimberlyn 17 mg/dL 5-40 Not Available [address], [address], 08/05/2024 10:13:37 08/04/20 24 08/05/2024 LIPID PANEL LDL chol calc ([facility]) 129 mg/dL 0-99 above high normal Not Available [address], [address], 08/05/2024 10:13:37 08/04/20 24 08/05/2024 COMP. METAB OLIC PANEL (14) glucose 94 mg/dL 70-99 Not Available [address], [address], 08/05/2024 10:13:37 08/04/20 24 08/05/2024 COMP. METAB OLIC PANEL (14) BUN 7 mg/dL 6-20 Not Available [address], [address], 08/05/2024 10:13:37 08/04/20 24 08/05/2024 COMP. METAB OLIC PANEL (14) creatinine 0.81 mg/dL 0.57-1 .00 Not Available [address], [address], 08/05/2024 10:13:37 08/04/20 24 08/05/2024 COMP. METAB OLIC PANEL (14) eGFR 96 mL/mi n/1.7 3 >59 Not Available [address], [address], 08/05/2024 10:13:37 08/04/20 24 08/05/2024 COMP. METAB OLIC PANEL (14) BUN/creatini ne ratio 9 9-23 Not Available [address], [address], 08/05/2024 10:13:37 08/04/20 24 08/05/2024 COMP. METAB OLIC PANEL (14) sodium 139 mmol/ L 134-14 4 Not Available [address], [address], 08/05/2024 10:13:37 08/04/20 24 08/05/2024 COMP. METAB OLIC PANEL (14) potassium 4.2 mmol/ L 3.5-5. 2 Not Available [address], [address], 08/05/2024 10:13:37 08/04/20 24 08/05/2024 COMP. METAB OLIC PANEL (14) chloride 103 mmol/ L 96-106 Not Available [address], [address], 08/05/2024 10:13:37 08/04/20 24 08/05/2024 COMP. METAB OLIC PANEL (14) carbon dioxide, total 22 mmol/ L 20-29 Not Available [address], [address], 08/05/2024 10:13:37 08/04/20 24 08/05/2024 COMP. METAB OLIC PANEL (14) calcium 9.8 mg/dL 8.7-10 .2 Not Available [address], [address], 08/05/2024 10:13:37 08/04/20 24 08/05/2024 COMP. METAB OLIC PANEL (14) protein, total 7.3 g/dL 6.0-8. 5 Not Available [address], [address], 08/05/2024 10:13:37 08/04/20 24 08/05/2024 COMP. METAB OLIC PANEL (14) albumin 4.6 g/dL 3.9-4. 9 Not Available [address], [address], 08/05/2024 10:13:37 08/04/20 24 08/05/2024 COMP. METAB OLIC PANEL (14) globulin, total 2.7 g/dL 1.5-4. 5 Not Available [address], [address], 08/05/2024 10:13:37 08/04/20 24 08/05/2024 COMP. METAB OLIC PANEL (14) bilirubin, total 0.5 mg/dL 0.0-1. 2 Not Available [address], [address], 08/05/2024 10:13:37 08/04/20 24 08/05/2024 COMP. METAB OLIC PANEL (14) alkaline phosphatase 111 IU/L 44-121 Not Available [address], [address], 08/05/2024 10:13:37 08/04/20 24 08/05/2024 COMP. METAB OLIC PANEL (14) AST (SGOT) 15 IU/L 0-40 Not Available [address], [address], 08/05/2024 10:13:37 08/04/20 24 08/05/2024 COMP. METAB OLIC PANEL (14) ALT (SGPT) 7 IU/L 0-32 Not Available [address], [address], 08/05/2024 10:13:37 08/04/20 24 08/05/2024 CARDI OVASC ULAR REPOR T interpretati on Note Suppl emjoss al repor t is avail able. Not Available [address], [address], 08/05/2024 10:13:38 08/04/2008/05/2024 CARDI OVASC ULAR REPOR T pdf . Not Available [facility] & [address], [address], 08/05/2024 10:13:38 08/04/2008/05/2024 HEMOG LOBIN A1C hemoglobin A1C 5.2 % 4.8-5. 6 Predi abete s: 5.7 - 6.4 Diabe jimena: >6.4 Glyce stefano contr ol for adult s with diabe jimena: <7.0 Not Available [address], [address], 08/05/2024 10:13:39 08/04/2008/05/2024 SEDIM ENTAT ION RATE- WESTE RGREN sedimentatio n rate-westerg sade 13 mm/HR 0-32 Not Available [address], [address], 08/05/2024 10:13:40 08/04/20 24 08/05/2024 CBC, PLATE LET, NO DIFFE RENTI AL WBC 7.0 x10e3 /uL 3.4-10 .8 Not Available [address], [address], 08/05/2024 10:13:41 08/04/2008/05/2024 CBC, PLATE LET, NO DIFFE RENTI AL RBC 5.51 x10e6 /uL 3.77-5 .28 above high normal Not Available [address], [address], 08/05/2024 10:13:41 08/04/20 24 08/05/2024 CBC, PLATE LET, NO DIFFE RENTI AL hemoglobin 16.5 g/dL 11.1-1 5.9 above high normal Not Available [address], [address], 08/05/2024 10:13:41 08/04/20 24 08/05/2024 CBC, PLATE LET, NO DIFFE RENTI AL hematocrit 49.6 % 34.0-4 6.6 above high normal Not Available [address], [address], 08/05/2024 10:13:41 08/04/2008/05/2024 CBC, PLATE LET, NO DIFFE RENTI AL MCV 90 fL 79-97 Not Available [address], [address], 08/05/2024 10:13:41 08/04/2008/05/2024 CBC, PLATE LET, NO DIFFE RENTI AL MCH 29.9 pg 26.6-3 3.0 Not Available [address], [address], 08/05/2024 10:13:41 08/04/20 24 08/05/2024 CBC, PLATE LET, NO DIFFE RENTI AL MCHC 33.3 g/dL 31.5-3 5.7 Not Available [address], [address], 08/05/2024 10:13:41 08/04/2008/05/2024 CBC, PLATE LET, NO DIFFE RENTI AL RDW 12.7 % 11.7-1 5.4 Not Available [address], [address], 08/05/2024 10:13:41 09/12/20 24 08/05/2024 CBC, PLATE LET, NO DIFFE RENTI AL platelets 438 x10e3 /uL 150-45 0 Not Available [facility] [address] [facility], [place], [address], 08/05/2024 10:13:41 08/31/20 24 08/31/2024 influ marlon virus A + B + SARS- CoV-2 (COVI D19) Ag panel , rapid IA, upper respi rator y speci men Flu A negati ve Not Available In-Office Order Internal Use Only DO Not Attach Compendium DO Not Attach Compendium, Do Not Delete/merge, [id number] 08/31/2024 16:39:57 08/31/20 24 08/31/2024 influ marlon virus A + B + SARS- CoV-2 (COVI D19) Ag panel , rapid IA, upper respi rator y speci men Flu B negati ve Not Available In-Office Order Internal Use Only DO Not Attach Compendium DO Not Attach Compendium, Do Not Delete/merge, [id number] 08/31/2024 16:39:57 08/31/20 24 08/31/2024 influ marlon virus A + B + SARS- CoV-2 (COVI D19) Ag panel , rapid IA, upper respi rator y speci men Rapid SARS CoV 2 Ag, QL IA, respiratory specimen negati ve Not Available In-Office Order Internal Use Only DO Not Attach Compendium DO Not Attach Compendium, Do Not Delete/merge, [id number] 08/31/2024 16:39:57 12/05/19 25 12/08/2024 Cycli c citru llina edgardo pepti de IgG Ab [Unit s/vol ume] in Serum or Plasm a ccp antibodies IgG/IgA <20 text: <20 units CCP Antib odies IgG/I gA <20 <20 Units [facility] ACCOU NT BILL Not Available Not Available 01/11/2025 04:00:49 12/05/19 25 12/08/2024 Cycli c citru llina edgardo pepti de IgG Ab [Unit s/vol ume] in Serum or Plasm a Unknown Analyte Perfor med at: 01 - [facility] [employer] [facility] [address] [place] [id number] Lab Direct or: Ortega sim MD, Not Available Not Available 04:00:49 12/05/1912/06/2024 Rheum atoid facto r [Tite r] in Serum rheumatoid factor <10.0 text: <14.0 IU/mL Rheum atoid Facto r <10.0 <14.0 IU/mL [facility] ACCOU NT BILL Not Available Not Available 01/11/2025 04:00:49 12/05/1912/06/2024 Rheum atoid facto r [Tite r] in Serum Unknown Analyte Perfor med at: 01 - [facility] [address] [id number] 058 Lab Direct or: Saray mccarthy PhD, Not Available Not Available 04:00:49 12/05/1912/06/2024 C react cricket prote in [Mass /volu me] in Serum or Plasm a C-reactive protein <1 low: 0mg/Lh igh: 10mg/L C-[place] ctive Prote in <1 0 - 10 mg/L [facility] ACCOU NT BILL Not Available Not Available 01/11/2025 04:00:49 12/05/1912/06/2024 C react cricket prote in [Mass /volu me] in Serum or Plasm a Unknown Analyte Perfor med at: 01 - [facility] [address] [id number] 948 Lab Direct or: Saray mccarthy PhD, Not Available Not Available 04:00:49 12/05/1912/07/2024 Nucle ar Ab [Pres ence] in Serum by Immun oassa y ELIZABETH Positi ve abnormal ELIZABETH Posit cricket (A) [facility] ACCOU NT BILL Not Available Not Available 01/11/2025 04:00:49 12/05/19 25 12/07/2024 Nucle ar Ab [Pres ence] in Serum by Immun oassa y speckled pattern 1:160 high Speck led Sola rn 1:160 (H) [facility] ACCOU NT BILL Not Available Not Available 01/11/2025 04:00:49 01/13/20 25 12/07/2024 Nucle ar Ab [Pres ence] in Serum by Immun oassa y note Commen t Note Comme nt [facility] ACCOU NT BILL Not Available Not Available 01/11/2025 04:00:49 12/05/19 25 12/07/2024 Nucle ar Ab [Pres ence] in Serum by Immun oasskierra plunkett Unknown Analyte Perfor med at: 01 - [facility] [place] [id number] [place] [address]44 Lab Direct or: Saray mccarthy PhD, Not Available Not Available 04:00:49 12/05/1912/07/2024 Nucle ar Ab [Pres ence] in Serum by Immun oasheila plunkett interpretati on and review of laboratory results Abnorm al Not Available Not Available 04:00:49 12/05/1912/07/2024 Mycob acter ium tuber culos is tuber culin stimu lated gamma inter feron [Pres ence] in Blood quantiferon incubation Incuba tion perfor med. Quant iFERO N Incub ation Incub ation perfo rmed. [facility] ACCOU NT BILL Not Available Not Available 01/11/2025 04:00:49 12/05/1912/07/2024 Mycob acter ium tuber culos is tuber culin stimu lated gamma inter feron [Pres ence] in Blood mycobacteriu m tuberculosis stimulated gamma interferon [interpretat ion] in blood qualitative Negati ve text: negati ve Quant iFERO N-TB Gold Plus Negat cricket Negat cricket [facility] ACCOU NT BILL Not Available Not Available 01/11/2025 04:00:49 12/05/1912/07/2024 Mycob acter ium tuber culos is tuber culin stimu lated gamma inter feron [Pres ence] in Blood quantiferon criteria Commen t Quant iFERO N Crite za Comme nt [facility] ACCOU NT BILL Not Available Not Available 01/11/2025 04:00:49 12/05/19 25 12/07/2024 Mycob acter ium tuber culos is tuber culin stimu lated gamma inter feron [Pres ence] in Blood quantiferon TB1 Ag value 0 text: IU/mL Quant iFERO N TB1 Ag Value 0.00 IU/mL [facility] ACCOU NT BILL Not Available Not Available 01/11/2025 04:00:49 12/05/19 25 12/07/2024 Mycob acter ium tuber culos is tuber culin stimu lated gamma inter feron [Pres ence] in Blood quantiferon TB2 Ag value 0.03 text: IU/mL Quant iFERO N TB2 Ag Value 0.03 IU/mL [facility] ACCOU NT BILL Not Available Not Available 01/11/2025 04:00:49 12/05/19 25 12/07/2024 Mycob acter ium tuber culos is tuber culin stimu lated gamma inter feron [Pres ence] in Blood quantiferon nil value 0 text: IU/mL Quant iFERO N Nil Value 0.00 IU/mL [facility] ACCOU NT BILL Not Available Not Available 01/11/2025 04:00:49 12/05/19 25 12/07/2024 Mycob acter ium tuber culos is tuber culin stimu lated gamma inter feron [Pres ence] in Blood quantiferon mitogen value >10.00 text: IU/mL Quant iFERO N Mitog en Value >10.0 0 IU/mL [facility] ACCOU NT BILL Not Available Not Available 01/11/2025 04:00:49 12/05/19 25 12/07/2024 Mycob acter ium tuber culos is tuber culin stimu lated gamma inter feron [Pres ence] in Blood Unknown Analyte Perfor med at: 01 - [facility] [address] [id number] 116 Lab Direct or: Saray mccarthy PhD, Not Available Not Available 04:00:49 12/05/19 25 12/06/2024 Eryth rocyt e sedim entat ion rate by Westcarlotta rgren metho d erythrocyte sedimentatio n rate westergren 23 text: 0 - 32 mm/HR Eryth rocyt e Sedim entat ion Rate Weste rgren 23 0 - 32 mm/hr [facility] ACCOU NT BILL Not Available Not Available 01/11/2025 04:00:49 12/05/1912/06/2024 Eryth rocyt e sedim entat ion rate by Bob franco Unknown Analyte Perfor med at: 01 - [facility] [address] [place], [place] [id number] 861 Lab Direct or: Saray mccarthy PhD, Not Available Not Available 04:00:49 12/05/1912/06/2024 CBC W Auto Diffe renti al panel - Blood WBC 8.3 text: 3.4 - 10.8 x10e3/ uL WBC 8.3 3.4 - 10.8 x10E3 /uL [facility] ACCOU NT BILL Not Available Not Available 01/11/2025 04:00:48 12/05/1912/06/2024 CBC W Auto Diffe renti al panel - Blood RBC 5.18 text: 3.77 - 5.28 x10e6/ uL RBC 5.18 3.77 - 5.28 x10E6 /uL [facility] ACCOU NT BILL Not Available Not Available 01/11/2025 04:00:48 12/05/1912/06/2024 CBC W Auto Diffe renti al panel - Blood hemoglobin 15.2 g/dL low: 11.1g/ dLhigh : 15.9g/ dL Hemog lobin 15.2 11.1 - 15.9 g/dL [facility] ACCOU NT BILL Not Available Not Available 01/11/2025 04:00:48 12/05/1912/06/2024 CBC W Auto Diffe renti al panel - Blood hematocrit 44.5 % low: 34%hig h: 46.6% Hemat ocrit 44.5 34.0 - 46.6 % [facility] ACCOU NT BILL Not Available Not Available 01/11/2025 04:00:48 12/05/19 25 12/06/2024 CBC W Auto Diffe renti al panel - Blood MCV 86 fL low: 79fLhi gh: 97fL MCV 86 79 - 97 fL [facility] ACCOU NT BILL Not Available Not Available 01/11/2025 04:00:48 12/05/1912/06/2024 CBC W Auto Diffe renti al panel - Blood MCH 29.3 pg low: 26.6pg high: 33pg MCH 29.3 26.6 - 33.0 pg [facility] RP ACCOU NT BILL Not Available Not Available 01/11/2025 04:00:48 12/05/19 25 12/06/2024 CBC W Auto Diffe renti al panel - Blood MCHC 34.2 g/dL low: 31.5g/ dLhigh : 35.7g/ dL MCHC 34.2 31.5 - 35.7 g/dL [facility] ACCOU NT BILL Not Available Not Available 01/11/2025 04:00:48 12/05/19 25 12/06/2024 CBC W Auto Diffe renti al panel - Blood RDW 13 % low: 11.7%h igh: 15.4% RDW 13.0 11.7 - 15.4 % [facility] ACCOU NT BILL Not Available Not Available 01/11/2025 04:00:48 12/05/19 25 12/06/2024 CBC W Auto Diffe renti al panel - Blood platelet count 390 text: 150 - 450 x10e3/ uL Plate let Count 390 150 - 450 x10E3 /uL [facility] ACCOU NT BILL Not Available Not Available 01/11/2025 04:00:48 12/05/19 25 12/06/2024 CBC W Auto Diffe renti al panel - Blood granulocytes % 72 % text: not estab. Granu locyt es % 72 Not Estab . % [facility] ACCOU NT BILL Not Available Not Available 01/11/2025 04:00:48 12/05/1912/06/2024 CBC W Auto Diffe renti al panel - Blood lymphocytes % 21 % text: not estab. Lymph ocyte s % 21 Not Estab . % [facility] ACCOU NT BILL Not Available Not Available 01/11/2025 04:00:48 12/05/1912/06/2024 CBC W Auto Diffe renti al panel - Blood monocytes % 6 % text: not estab. Monoc ytes % 6 Not Estab . % [facility] ACCOU NT BILL Not Available Not Available 01/11/2025 04:00:48 12/05/19 25 12/06/2024 CBC W Auto Diffe renti al panel - Blood eosinophils % 0 % text: not estab. Eosin ophil s % 0 Not Estab . % [facility] RP ACC NT BILL Not Available Not Available 01/11/2025 04:00:48 12/05/1912/06/2024 CBC W Auto Diffe renti al panel - Blood basophils % 1 % text: not estab. Basop hils % 1 Not Estab . % [facility] RP ACC NT BILL Not Available Not Available 01/11/2025 04:00:48 12/05/19 25 12/06/2024 CBC W Auto Diffe renti al panel - Blood granulocytes absolute 6 text: 1.4 - 7.0 x10e3/ uL Granu locyt es Absol [place] 6.0 1.4 - 7.0 x10E3 /uL [facility] RP ACC NT BILL Not Available Not Available 01/11/2025 04:00:48 12/05/19 25 12/06/2024 CBC W Auto Diffe renti al panel - Blood lymphocytes absolute 1.8 text: 0.7 - 3.1 x10e3/ uL Lymph ocyte s Absol [place] 1.8 0.7 - 3.1 x10E3 /uL [facility] RP ACC NT BILL Not Available Not Available 01/11/2025 04:00:48 12/05/19 25 12/06/2024 CBC W Auto Diffe renti al panel - Blood monocytes absolute 0.5 text: 0.1 - 0.9 x10e3/ uL Monoc ytes Absol [place] 0.5 0.1 - 0.9 x10E3 /uL [facility] RP ACC NT BILL Not Available Not Available 01/11/2025 04:00:48 12/05/19 25 12/06/2024 CBC W Auto Diffe renti al panel - Blood eosinophils absolute 0 text: 0.0 - 0.4 x10e3/ uL Eosin ophil s Absol [place] 0.0 0.0 - 0.4 x10E3 /uL [facility] RP ACC NT BILL Not Available Not Available 01/11/2025 04:00:48 12/05/19 25 12/06/2024 CBC W Auto Diffe renti al panel - Blood basophils absolute 0 text: 0.0 - 0.2 x10e3/ uL Basop hils Absol [place] 0.0 0.0 - 0.2 x10E3 /uL [facility] ACCOU NT BILL Not Available Not Available 01/11/2025 04:00:48 12/05/1912/06/2024 CBC W Auto Diffe renti al panel - Blood immature granulocytes 0 % text: not estab. Immat ure Granu locyt es 0 Not Estab . % [facility] ACCOU NT BILL Not Available Not Available 01/11/2025 04:00:48 12/05/1912/06/2024 CBC W Auto Diffe renti al panel - Blood immature granulocytes absolute 0 text: 0.0 - 0.1 x10e3/ uL Immat ure Granu locyt es Absol [place] 0.0 0.0 - 0.1 x10E3 /uL [facility] ACCOU NT BILL Not Available Not Available 01/11/2025 04:00:48 12/05/1912/06/2024 CBC W Auto Diffe renti al panel - Blood Unknown Analyte Perfor med at: 01 - [place] [id number] Lab Direct or: Saray mccarthy PhD, Not Available Not Available 04:00:48 12/05/1912/06/2024 Compr ehens cricket metab olic 2000 panel - Serum or Plasm a glucose [mass/volume ] in serum or plasma 94 mg/dL low: 70mg/d Lhigh: 99mg/d L Gluco se 94 70 - 99 mg/dL [facility] ACCOU NT BILL Not Available Not Available 01/11/2025 04:00:48 12/05/1912/06/2024 Compr ehens cricket metab olic 2000 panel - Serum or Plasm a BUN 6 mg/dL low: 6mg/dL high: 20mg/d L BUN 6 6 - 20 mg/dL [facility] ACCOU NT BILL Not Available Not Available 01/11/2025 04:00:48 12/05/19 25 12/06/2024 Compr ehens cricket metab olic 2000 panel - Serum or Plasm a creatinine [mass/volume ] in serum or plasma 0.7 mg/dL low: 0.57mg /dLhig h: 1mg/dL Creat inine 0.70 0.57 - 1.00 mg/dL [facility] ACCOU NT BILL Not Available Not Available 01/11/2025 04:00:48 12/05/1912/06/2024 Compr ehens cricket metab olic 2000 panel - Serum or Plasm a glomerular filtration rate/1.73 sq M.predicted [volume rate/area] in serum, plasma or blood by creatinine-b ased formula (CKD-epi) 115 mL/mi n/1.7 3 low: 59mL/m in/1.7 3 eGFR by CKD-E PI 115 >59 mL/mi n/1.7 3 [facility] ACCOU NT BILL Not Available Not Available 01/11/2025 04:00:48 12/05/1912/06/2024 Compr ehens cricket metab olic 2000 panel - Serum or Plasm a BUN/creatini ne ratio 9 low: 9high: 23 BUN/C reati nine Ratio 9 9 - 23 [facility] ACCOU NT BILL Not Available Not Available 01/11/2025 04:00:48 12/05/19 25 12/06/2024 Compr ehens cricket metab olic 2000 panel - Serum or Plasm a sodium 139 mmol/ L low: 134mmo l/Lhig h: 144mmo l/L Sodiu m 139 134 - 144 mmol/ L [facility] ACCOU NT BILL Not Available Not Available 01/11/2025 04:00:48 12/05/19 25 12/06/2024 Compr ehens cricket metab olic 1999 panel - Serum or Plasm a potassium 3.9 mmol/ L low: 3.5mmo l/Lhig h: 5.2mmo l/L Potas sium 3.9 3.5 - 5.2 mmol/ L [facility] ACCOU NT BILL Not Available Not Available 01/11/2025 04:00:48 12/05/1912/06/2024 Compr ehens cricket metab olic 2000 panel - Serum or Plasm a chloride 103 mmol/ L low: 96mmol /Lhigh : 106mmo l/L Chlor freda 103 96 - 106 mmol/ L [facility] ACCOU NT BILL Not Available Not Available 01/11/2025 04:00:48 12/05/19 25 12/06/2024 Compr ehens cricket metab olic 2000 panel - Serum or Plasm a CO2 21 mmol/ L low: 20mmol /Lhigh : 29mmol /L CO2 21 20 - 29 mmol/ L [facility] ACCOU NT BILL Not Available Not Available 01/11/2025 04:00:48 12/05/19 25 12/06/2024 Compr ehens cricket metab olic 2000 panel - Serum or Plasm a calcium 9.5 mg/dL low: 8.7mg/ dLhigh : 10.2mg /dL Calci um 9.5 8.7 - 10.2 mg/dL [facility] ACCOU NT BILL Not Available Not Available 01/11/2025 04:00:48 12/05/19 25 12/06/2024 Compr ehens cricket metab olic 2000 panel - Serum or Plasm a protein total 7.4 g/dL low: 6g/dLh igh: 8.5g/d L Prote in Total 7.4 6.0 - 8.5 g/dL [facility] ACCOU NT BILL Not Available Not Available 01/11/2025 04:00:48 12/05/19 25 12/06/2024 Compr ehens cricket metab olic 2000 panel - Serum or Plasm a albumin 4.7 g/dL low: 3.9g/d Lhigh: 4.9g/d L Album in 4.7 3.9 - 4.9 g/dL [facility] ACCOU NT BILL Not Available Not Available 01/11/2025 04:00:48 12/05/19 25 12/06/2024 Compr ehens cricket metab olic 2000 panel - Serum or Plasm a globulin total 2.7 g/dL low: 1.5g/d Lhigh: 4.5g/d L Globu nadya Total 2.7 1.5 - 4.5 g/dL [facility] ACCOU NT BILL Not Available Not Available 01/11/2025 04:00:48 12/05/19 25 12/06/2024 Compr ehens cricket metab olic 2000 panel - Serum or Plasm a bilirubin total 0.5 mg/dL low: 0mg/dL high: 1.2mg/ dL Bilir ubin Total 0.5 0.0 - 1.2 mg/dL [facility] ACCOU NT BILL Not Available Not Available 01/11/2025 04:00:48 01/13/20 25 12/06/2024 Compr ehens cricket metab olic 2000 panel - Serum or Plasm a alkaline phosphatase 100 text: 44 - 121 IU/L Alkal ine Phosp hatas e 100 44 - 121 IU/L [facility] ACCOU NT BILL Not Available Not Available 01/11/2025 04:00:48 12/05/19 25 12/06/2024 Compr ehens cricket metab olic 2000 panel - Serum or Plasm a AST 21 text: 0 - 40 IU/L AST 21 0 - 40 IU/L [facility] ACCOU NT BILL Not Available Not Available 01/11/2025 04:00:48 12/05/19 25 12/06/2024 Compr ehens cricket metab olic 2000 panel - Serum or Plasm a ALT 16 text: 0 - 32 IU/L ALT 16 0 - 32 IU/L [facility] ACCOU NT BILL Not Available Not Available 01/11/2025 04:00:48 12/05/19 25 12/06/2024 Compr ehens cricket metab olic 2000 panel - Serum or Plasm a Unknown Analyte Perfor med at: 01 - [facility] [address] [id number] Lab Direct or: Saray mccarthy PhD, Not Available Not Available 04:00:48 12/05/19 25 12/06/2024 Creat ine kinas e [Enzy matic activ ity/v olume ] in Serum or Plasm a CK 170 U/L low: 32U/Lh igh: 182U/L CK 170 32 - 182 U/L [facility] ACCOU NT BILL Not Available Not Available 01/11/2025 04:00:48 12/05/19 25 12/06/2024 Creat ine kinas e [Enzy matic activ ity/v olume ] in Serum or Plasm a Unknown Analyte Perfor med at: 01 - [facility] [address] [id number] [facility] or: Saray mccarthy PhD, Not Available Not Available 04:00:48 08/17/20 24 08/17/2024 US, neck, soft tissu e No observ ation record ed. [facility] [address] [place], [address], 08/18/2024 10:34:00 Result Notes None recorded. Procedures Surgical History Date Name Laterality Status Provider Name and Address Organization Details Recorded Time cholecystectomy completed Katie De La Rosa MA MA - [facility] 08/04/2024 12:03:22 spinal fusion for scoliosis completed Katie De La Rosa MA MA - [facility] 08/04/2024 12:03:37 Imaging Results Imaging Date Name Status LastModified by Organiz ation Details LastModified Time 08/17/2024 US, neck, soft tissue completed [facility] [address] [place], [address], 08/18/2024 10:34:00 Procedure Notes None recorded. Medical Equipment None Reported. Allergies Allergen ID Allergen Name Allergen Category Reaction Reaction Severity Criticality Documentation Date Start Date Code Code System Note Provider Name and Address Organization Details Recorded Time 040441 Augmentin medicatio n rash Not available Not available 08/04/2024 81836 2 RxNorm Katie De La Rosa MA null, [facility] 4 11:59:42 643321 Bactrim medicatio n rash Not available Not available 09/13/2024 92244 9 RxNorm lymph nodes DIMPLE Hernandez, [facility] 4 18:25:42 Medications Name Sig Start Date Stop Date Status Note LastModified by Organization Details LastModified Time cyclobenzap rine 10 mg tablet TAKE 1 TABLET BY MOUTH THREE TIMES A DAY NEEDED FOR 30 DAYS active Not Available Not Available No t Available clindamycin HCl 300 mg capsule TAKE 1 CAPSULE BY MOUTH EVERY 8 HOURS FOR 10 DAYS 08/18 completed Not Available Not Available Not Available sulfamethox azole 800 mg-trimetho prim 160 mg tablet TAKE 1 TABLET BY MOUTH EVERY 12 HOURS FOR 10 DAYS 08/31 completed Not Available Not Available Not Available azithromyci n 500 mg tablet TAKE 1 TABLET BY MOUTH EVERY DAY FOR 3 DAYS 09/13 completed Not Available Not Available Not Available Pulmicort active Not Available Not Janny ilable Not Available Flovent Diskus 250 mcg/actuati on powder for inhalation Inhale 1 puff twice a day by inhalatio n route. 08/18 completed Not Available Not Available Not Available albuterol 90 mcg-budeson freda 80 mcg/actuati on HFA aerosol inhaler Inhale by inhalatio n route. active Not Available Not Available No t Available Vitals Date Recorded Body height Body mass index (BMI) Body weight Oxygen saturation Oxygen saturation in Arterial blood by Pulse oximetry Heart rate Systolic blood pressure Diastolic blood pressure Provider Name and Address Organization Details Last Updated DateTime 4 172.72 cm 17.3 kg/m2 86669.5 3 g 99 % 99 % 78 /min 107 mm[Hg] 70 mm[Hg] Katie De La Rosa MA [facility] 4 15:14:24 Date Recorded Body height Body mass index (BMI) Body weight Oxygen saturation Oxygen saturation in Arterial blood by Pulse oximetry Heart rate Systolic blood pressure Diastolic blood pressure Provider Name and Address Organization Details Last Updated DateTime 4 172.72 cm 17.4 kg/m2 96089.6 8 g 98 % 98 % 101 /min 117 mm[Hg] 81 mm[Hg] Katie De La Rosa MA [facility] 4 15:52:55 Date Recorded Body height Body mass index (BMI) Body weight Oxygen saturation Oxygen saturation in Arterial blood by Pulse oximetry Heart rate Respiratory rate Systolic blood pressure Diastolic blood pressure Provider Name and Address Organization Details Last Updated DateTime 4 172.72 cm 17.6 kg/m2 01803.2 8 g 100 % 100 % 84 /min 16 /min 107 mm[Hg] 72 mm[Hg] Anjali Gerard MA [facility] 4 18:27:18 Date Recorded Body height Body mass index (BMI) Body weight Oxygen saturation Oxygen saturation in Arterial blood by Pulse oximetry Heart rate Systolic blood pressure Diastolic blood pressure Provider Name and Address Organization Details Last Updated DateTime 5 172.72 cm 17.5 kg/m2 72084.1 2 g 99 % 99 % 74 /min 110 mm[Hg] 68 mm[Hg] Lorena Hastings MA [facility] 5 14:42:23 Date Recorded Body height Body mass index (BMI) Body weight Oxygen saturation Oxygen saturation in Arterial blood by Pulse oximetry Heart rate Respiratory rate Systolic blood pressure Diastolic blood pressure Provider Name and Address Organization Details Last Updated DateTime 172.72 cm 17.6 kg/m2 83564 g 100 % 100 % 86 /min 16 /min 116 mm[Hg] 76 mm[Hg] Anjali Gerard MA [place] - [facility] 15:00:27 Social History Question Answer Notes LastModified by Organizat ion Details LastModified Time Tobacco Smoking Status Current Every Day Smoker Katie De La Rosa MA null, [place] - [facility] 08/04/2024 12:02:31 Are You Blind Or Do You Have Difficulty Seeing? No Information not available 08/04/2024 What Is Your Level Of Caffeine Consumption? Heavy Information not available 08/04/2024 Are You Deaf Or Do You Have Serious Difficulty Hearing? No Information not available 08/04/2024 What Type Of Diet Are You Following? REGULAR Information not available 08/04/2024 Are There Any Guns Present In Your Home? No Information not available 08/04/2024 What Was The Date Of Your Most Recent Tobacco Screening? 01/12/2025 Information not available 01/12/2025 How Many Children Do You Have? 3 2 Adopted Information not available 08/04/2024 What Is Your Current Pack Years? 10-19packye ars Information not available 08/04/2024 What Is Your Relationship Status? Information not available 08/04/2024 Do You Use Your Seat Belt Or Car Seat Routinely? Yes Information not available 08/04/2024 Do You Have Smoke And Carbon Monoxide Detectors In Your Home? Yes Information not available 08/04/2024 Are You Passively Exposed To Smoke? No Information not available 08/04/2024 How Much Tobacco Do You Smoke? 0.25 PPD Information not available 08/04/2024 Do You Use Sunscreen Routinely? Yes Information not available 08/04/2024 Has Tobacco Cessation Counseling Been Provided? Yes Information not available 08/04/2024 On What Date Was Tobacco Cessation Counseling Provided? 01/12/2025 Information not available 01/12/2025 How Many Years Have You Smoked Tobacco? 10 Information not available 08/04/2024 Sex: Female Functional Status Question Answer Note LastModified by Organizat ion Details LastModified Time Do you use any illicit or recreational drugs? No Information not available 08/04/2024 Do you or have you ever used any other forms of tobacco or nicotine? No Information not available 08/04/2024 What is your level of alcohol consumption? None Information not available 08/04/2024 Are you currently employed? No Information not available 08/04/2024 Are you able to care for yourself? Yes Information n ot available 08/04/2024 What is your exercise level? Occasional Information not available 08/04/2024 Mental Status Question Answer Note LastModified by Organization D etails LastModified Time Do you feel stressed (tense, restless, nervous, or anxious, or unable to sleep at night)? [id number] Information not available 08/04/2024 Family History Relationship Description Onset Age of this Age Resolved Age Notes LastModified by Organization Details LastModified Time Mother Multiple sclerosis kclarkma Not available 2023 12:01:23 Mother Hypertensive disorder kclarkma Not available 2023 12:01:59 Sister Lupus erythematosu s kclarkma Not available 2023 12:01:35 Medical History Condition Response Coronary Artery Disease N Other N High Blood Pressure N Atrial Fibrillation N Thyroid Problems N Kidney or Bladder Problems N GI Problems N Depression N COPD N Blood Clots N Have you had a mammogram in the last yea r? N Skin Problems N Eating Disorder N Anemia N Heart Attack ([place]) N Anxiety Disorder Y Diabetes N Muscle, Joint, or Bone Problems N Arthritis N Seizures/Epilepsy N Have you had a colonoscopy in the last 1 0 years? N Acid Reflux (GERD) N Cancer N Stroke N Asthma N Allergies N Have you had a PSA blood test in the las t year? N ADHD N Substance Abuse N High Cholesterol N Hepatitis N Liver Disease N Schizophrenia N Headaches N Heart Failure N Osteoporosis N Gynecological History Statement/Question Response Current Control Method None Date of LMP 01/11/2025 LMP Definite Obstetrics History GPAL:G 1 P 1 0 0 0 Type Value Full Term 1 Total 1 Past Encounters Encounter ID Performer Location Encounter Start Date Encounter Closed Date Diagnosis/Indication Diagnosis SNOMED-CT Code Diagnosis ICD10 Code Diagnosis Note [id number] Navid Castelan PA-C [facility] [address] [place] [address] 08/04/2024 11:47:26 08/05/2024 07:40:33 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 Cervical lymphadenopathy 470048734 R59.0 Unexplaine d weight loss 904975050 R63.4 [id number] Navid Castelan PA-C [facility] [address] [place] [address] 08/18/2024 15:04:41 08/24/2024 14:56:30 Left parotid gland swelling 7345076661 5080978 K11.21 Underweight 804378385 R6 3.6 [id number] Navid Castelan PA-C [facility] [address] [place] [address] 08/31/2024 15:43:46 09/01/2024 16:24:13 Upper respiratory infection 84355537 J00 Cough 82131391 R05.1 [id number] Chris Christie MD [facility] [address] [place] [address] 09/13/2024 18:16:57 09/19/2024 13:25:09 Cervical lymphadenopathy 438756055 R59.0 Spasm of m uscle of lower back 8660676699 8480729 M62.830 Underweight 897657285 R6 3.6 [id number] Chris Christie MD [facility] [address] [place] [address] 01/11/2025 14:27:19 01/12/2025 08:59:39 Adult health examination 064436302 Z00.00 Body mass index 20-24 - normal 611025342 Z68.20 [id number] Chris Christie MD [facility] [address] [place] [address] 01/12/2025 14:56:37 01/16/2025 10:29:36 Fartun-Danlos syndrome 531505612 Q79.61 Pain of le ft shoulder joint 1788610108 9605043 M25.512 [facility] 024580182 R6 3.6 Health Concerns Section Related Observation LastModified by Organization Detai ls LastModified Time None Recorded Concern Status LastModified by Organization Details LastModified Time None Recorded Advance Directives Directive None Recorded Payers Encounter Date Sequence Insurance Name Policy Number Policy Metcalf Covered Member ID Metcalf Member ID Guarantor Name 08/18/2024 1 [facility] Ibrahima Vogt [id number] Elyse Vogt 08/31/2024 1 [facility] Ibrahima Vogt [id number] Elyse Vogt 09/13/2024 1 [facility] Ibrahima Vogt [id number] Elyse Vogt 01/11/2025 1 [facility] Ibrahima Vogt [id number] Elyse Vogt 01/12/2025 1 [facility] Ibrahima Vogt [id number] Elyse Vogt Notes Date Note Type Note Provider Name and Address Organization Details Recorded Time 08/18/2024 text/html follow up on parotiditis and lymphadenopathy Navid Castelan PA-C Attn: [address] [place], [address], [facility] 08/18/2024 15:54:28 08/31/2024 text/html started with uri symptoms..Thursday...cu rrently on TMP before start of symptoms Navid Castelan PA-C Attn: [address] [place], [address], [facility] 08/31/2024 16:44:16 09/13/2024 text/html follow up on ultrasound see previous note...left side neck...pain improving..looks like lymphnodes..also hx of spinal fusion and sometimes needs toradol Navid Castelan PA-C Attn: [address] [place], [address], [facility] 09/13/2024 18:39:20 01/11/2025 text/html DCFS eligibilty... Navid mario PA-C Attn: [address], [place], [address], [facility] 01/11/2025 14:58:52 01/12/2025 text/html rheum says she h as definite Fartun Danlos..but is waiting for some additional genetic testing...also left shoulder pain..health physicist not helping..making it worse..rheum ordered phys therapy..no xrays yet Navid Castelan PA-C Attn: Accounting[address], [place], [address], [facility] 01/12/2025 15:16:12 OBGyn Episode Ob Episode Information Episode Created Date Number of Fetuses Patient Bloodtype Patient rh Status Prepregnancy Weight lbs Domestic Partner Domestic Partner Phone Father Name Filenet Developer Status 08/04/20 24 1 CLOSED Fetus Data First Name Last Name Admitted to NICU Weight (g) Sex Living Outcome Pediatric Complications Fetus ID Race Codes Race Delivery Type Full Term [id number] Gideon Calculation Initial Gideon Date Initial Exam Date Initial Exam Provider Initial Ultrasound Date Last Menstrual Period Date Ultra Sound Weeks Gestation 0 Eighteen To Twenty Week Gideon Update Ultra Sound Date Fundal Height At Umbil Quickening Date Ultra Sound Latest Weeks Gestation Final Gideon Confirmed By Final Gideon Confirmed Date Final Gideon Date Ultra Sound Latest Days Gestation 0 0 Menstrual History Last Menstrual Date Menses Monthly On Bcp Conception Prior Menses Frequency Hcg Plus Date Menarche Onset Age Delivery Information Delivery Date Delivery Type Labor Anesthesia Weeks Gestation Incision Type Labor Labor Length Hrs Delivered By Post Complications Tubal Sterilization Discharge Date Comments 1 Discharge Information Feeding Method Contraceptive Method Maternal HG B and HCT Levels
--- OUTSIDE RECORDS SUMMARY | 2025-04-12 10:31 | XMS_ITS | Referral Summary ---
Author Organization [facility] Medical Office Building B Address [address] [place] [address] Care Team Providers Care Aircraft Captain Name Role Phone Kartik Mejia DO Primary Care Provider [phone] Encounters Date Type Department Care Team Description 04/10/2025 3:00 PM CDT Office Visit [facility] [address] [place] [address] [place] [address] Kimberly Cardenas NP Perianal abscess (Primary Dx) from Last 3 Months Allergies Active Allergy Reactions Criticality Noted Date [...] Unchanged - LEFT RIBCAGE STRAIN Depression 04/30/2009 Social History Tobacco Use Types Packs/Day Years [...] on file Legal 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 Stent N/A: Pancreas [employer] 03/22/2027 [id number] / / [id number] Procedures Procedure Name Priority Date/Time Associated Diagnosis [...] Performed by Comment [facility] 02 Comment[facility] Emissions Repair Technician (ASCP) . . [facility] 02 Note: [...] 08/18/2022 10:09 AM CDT Performed at: - [address] [id number] Binding Printer: Ellyn Arriaga MD, Phone: [phone] Performed at: - [address] [id number] Binding Printer: Ellyn Arriaga MD, Phone: [phone] Geovani Coyne MD LAB CYTOLOGY ORDERABLES Fi nal Result [facility] 02 [facility] - 01 from Last 3 Months or Most Recently Relevant to Health Maintenance Insurance [facility] HMO/PPO Address: [address] [address] [place] [address] [facility] HMO/PPO Address: [address] [place] [address] [facility] HMO/PPO Address: [facility] [id number] [place] [address] Advance Directives For more information, please contact: [phone] * Full Code (Latest Code Status on File) Date Activated Date Inactivated Comments 09/23/2022 9:18 AM 09/23/2022 4:56 PM Care Teams Aircraft Captain Relationship Specialty Start Date End Date Kartik Mejia DO PCP - General 11/11/17
--- OUTSIDE RECORDS SUMMARY | 2025-04-12 10:54 | XMS_ITS | Clinical Summary ---
Author Organization [facility] Address [address] [place] [address] Phone Care Team Providers Care Precision Lens Generator Name Role Phone Kartik Mejia DO Primary [...] by mouth daily. Active ergocalciferol (VITAMIN D) 34804 UNIT CapsuleIndicati ons:MONDAYS Take 50,000 Units by [...] patient's age to complete this topic Insurance [facility] Care Teams Precision Lens Generator Relationship Specialty Start Date End Date Kartik Mejia DO [address] [place] [address] [phone] PCP - General Internal Medicine 12/03/15
--- OUTSIDE RECORDS SUMMARY | 2025-04-12 10:55 | XMS_ITS | Clinical Summary ---
Author Organization [facility] Address [address] [place] [address] Care Team Providers Care Converting Operator Name Role Phone Kartik Mejia DO Primary Care Provider [phone] [facility] and Associated Physician Practices is amultiple site organization consisting of ambulatory clinics and hospital sitesin [place], [place], [place] and [place]. This disclosure is being madepursuant to the Care Everywhere program and may not contain all information available regarding this patient. Last updated 18.[facility] Allergies Active Allergy Reactions Criticality Noted Date Comments Augmentin Urticaria Medium 08/09/2022 Bactrim Ds Other,Rash,Swelling Medium 12/05/2024 Medications * Be aware that medications may not be up to date on this document. Alwaysverify current medications with the patient. Coenzyme Q10 (CoQ10) 100 MG 100 (one hundred) mg Active Cyanocobalamin (Vitamin B 12) 100 MCG Active Low Moor-3 Fatty Acids (fish oil) 1000 MG capsule Fish Oil 1000 MG Oral Capsule QTY: 0 capsule Days: 0 Refills: 0 Written: 01/21/22 Patient Instructions: 2 Active vitamin D, ergocalciferol , (Drisdol) 1.25 MG (94702 UT) capsule Take 1 (one) capsule by mouth Active Adalimumab-ada z (Hyrimoz) 40 MG/0.4ML injectionIndic ations:Psoriat ic arthritis (HCC) Inject 0.4 mL subcutaneously every 14 days 0.8 mL 5 5 Active Encounters Date Type Department Care Team Description 02/10/[address] [facility] - Rheumatology [address], [address] [place] [address] Alana Araiza MD Medication Management [...] on file Legal Sex Female 5:38 AM TRANSPORTATION SUPERVISOR Gender Identity Not on file Sexual Orientation Not on file Last Filed Vital Signs Vital Sign Reading Time Taken Comments Blood Pressure 108/78 12/05/2024 2:44 PM TRANSPORTATION SUPERVISOR Pulse 90 12/05/2024 2:44 PM TRANSPORTATION SUPERVISOR Temperature 37.9 C (100.2 F) 12/05/2024 2:44 PM TRANSPORTATION SUPERVISOR Respiratory Rate 16 12/05/2024 2:44 PM TRANSPORTATION SUPERVISOR Oxygen Saturation 100% 12/05/2024 2:44 PM TRANSPORTATION SUPERVISOR Inhaled Oxygen Concentration - - Weight 52.4 kg (115 lb 9.6 oz) 12/05/2024 2:44 P M TRANSPORTATION SUPERVISOR Height 172.7 cm (5' 8 ) 08/09/2022 [...] SCREEN ACUTE ([facility]) Routine 12/05/2024 4:24 PM TRANSPORTATION SUPERVISOR Inflammatory arthritis from Last 3 Months or Most Recently Relevant to Health Maintenance Results * HEPATITIS SCREEN ACUTE ([facility]) (12/05/2024 4:24 PM TRANSPORTATION SUPERVISOR) Hepatitis A Virus Antibody IgM Non Reactive [...] HCV infection. Performed at: 02 - [facility] [address] [id number] Core Driller Helper: Mohit Rodriguez PhD, Phone: [phone] Interpretation Comment [facility] ACCOUNT BILL Comment: Not infected with HCV unless early or acute infection is suspected (which may be delayed in an immunocompromised individual), or other evidence exists to indicate HCV infection. Blood BLOOD SPECIMEN / Unknown 12/05/2024 4:24 PM TRANSPORTATION SUPERVISOR 12/05/2024 Narrative [facility] ACCOUNT BILL - 12/05/2024 11:06 PM TRANSPORTATION SUPERVISOR Performed at: - [facility] [address] [place], [place] [id number] Core Driller Helper: Justino Deutsch MD, Phone: [phone] us Alana Araiza MD LAB - CHEMISTRY ORDERABLES Final Result [facility] ACCOUNT BILL [address] [place] [address] from Last 3 Months or Most Recently Relevant to Health Maintenance [place] [address] [place] [address] MEDICAID - OUT OF [facility] [address] [place] [address] [facility] [employer] MEDICAID - OUT [place] [address] [place] [address] Care Teams Converting Operator Relationship Specialty Start Date End Date Kartik Mejia DO [address] [place] [address] PCP - General Internal Medicine 08/09/22
--- OUTSIDE RECORDS SUMMARY | 2025-04-12 10:55 | XMS_ITS | Clinical Summary ---
Author Organization [facility] Medical Office Building B Address [address] [place] [address] Care Team Providers Care Oil Well Gun Perforator Operator Name Role Phone Kartik Mejia DO [...] Description 04/10/2025 3:00 PM CDT Office Visit [facility] [place] [address] [place] [address] Kimberly Cardenas, LUMBER SCALER Perianal abscess (Primary Dx) from Last 3 [...] on file Legal Sex Female 3:40 PM SUBASSEMBLER Gender Identity Not on file Sexual Orientation [...] this topic Medical Devices Explanted Type Area Electronic Drafter Device Identifier Shelf Expiration Date Model / Serial / Lot [employer] Parks Flexi-Stent 4fr 2cm Small Pigtail Straight Flexible .025 6341 - [id number] Explanted:Qty : 1 on 09/23/2022 at [facility] Stent N/A: Pancreas [employer] 03/22/2027 6341 / / [id number] Procedures Procedure Name Priority Date/Time Associated Diagnosis [...] by Comment [facility] 02 Comment:[facility] Box Blank Machine Operator Helper (ASCP) . . [facility] 02 Note: [...] 08/18/2022 10:09 AM CDT Performed at: - [address] [id number] Manager Animal: Ellyn Arriaga MD, Phone: [phone] Performed at: - [facility] [id number] Manager Animal: Ellyn Arriaga MD, Phone: [phone] Geovani Coyne MD LAB CYTOLOGY ORDERABLES Fi nal Result [facility] 02 [facility] - from Last 3 Months or Most Recently Relevant to Health Maintenance Insurance [facility] CHOICE PLUS CHOICE PLUS [facility] CHOICE PLUS Advance Directives For more information, please contact: [phone] * Full Code (Latest Code Status on File) Date Activated Date Inactivated Comments 09/23/2022 9:18 AM 09/23/2022 4:56 PM Care Teams Oil Well Gun Perforator Operator Relationship Specialty Start Date End Date Kartik Mejia DO PCP - General 11/11/17
--- OUTSIDE RECORDS SUMMARY | 2025-04-12 10:55 | XMS_ITS | Referral Summary ---
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 Gender Identity Not on file Sexual Orientation [...] on file Medical Devices Explanted Type Area Automatic Screwmaker Device Identifier Shelf Expiration Date Model / Serial / Lot [employer] Parks Flexi-Stent 4fr 2cm Small Pigtail Straight Flexible .025 6341 - [id number] Explanted:Qty : 1 on 09/23/2022 at [facility] Stent N/A: Pancreas [employer] 03/22/2027 [id number] / / [id number] Procedures Procedure Name Priority Date/Time Associated Diagnosis [...] Performed by Comment [facility] 02 Comment:[facility] Business Objects Analyst (ASCP) . . [facility] 02 Note: [...] 08/18/2022 10:09 AM CDT Performed at: - [address] [id number] Scrap Drop Engineer: Ellyn Arriaga MD, Phone: [phone] Performed at: - [address] [id number] Scrap Drop Engineer: Ellyn Arriaga MD, Phone: [phone] Geovani Coyne MD LAB CYTOLOGY ORDERABLES Fi nal Result [facility] 02 [facility] - 01 from Last 3 Months or Most Recently Relevant to Health Maintenance Insurance Advance Directives For more information, please contact: [phone] * Full Code (Latest Code Status on File) Date Activated Date Inactivated Comments 09/23/2022 9:18 AM 09/23/2022 4:56 PM Care Teams Exchange Operator Relationship Specialty Start Date End Date Kartik Mejia DO PCP - General 11/11/17
[2025-04-12 11:21] LABS: Add Urine Microscopic? YES; Appearance Urine Clear (Clear); Basophils Absolute Auto 0.05 K/mm3 (0.00-0.10); Basophils Percent Auto 0.5 % (0.0-1.0); Bilirubin Urine Negative (Negative); Blood Urine 1+ (Negative); Color Urine Light Yellow (Yellow); Eosinophils Absolute Auto 0.02 K/mm3 (0.02-0.50); Eosinophils Percent Auto 0.2 % (1.0-6.0); Glucose Urine UA Negative (Negative); Hematocrit 46.3 % (35.0-49.0); Hemoglobin 15.2 g/dL (12.0-15.0); Immature Granulocyte Absolute 0.02 K/mm3 (0.00-0.00); Immature Granulocyte Percent A 0.2 % (0.0-0.0); Ketones Urine Negative (Negative); Leukocyte Esterase Ur Negative LEU/UL (Negative); Lymphocytes Absolute Auto 1.82 K/mm3 (1.10-4.50); Lymphocytes Percent Auto 19.5 % (18.0-42.0); Mean Corpuscular HGB Conc 32.8 g/dL (32-36); Mean Corpuscular Hemoglobin 28.8 pg (27.0-31.0); Mean Corpuscular Volume 87.7 fL (78.0-102.0); Mean Platelet Volume 9.3 fl (9.2-11.8); Monocytes Percent Auto 4.3 % (2.0-11.0); Neutrophils Absolute Auto 7.04 K/mm3 (1.70-7.20); Neutrophils Percent Auto 75.3 % (50.0-70.0); Nitrate Urine Negative (Negative); Platelet Count Result 410 K/mm3 (150-420); Protein Urine Negative (Negative); Red Blood Count 5.28 M/mm3 (4.20-5.40); Specific Grav Ur <= 1.005 (1.010-1.020); Urobilinogen Urine 0.2 mg/dL (0.2-1.0); White Blood Count 9.4 K/mm3 (4.8-10.8); pH Urine 5.5 (5.0-8.0)
[2025-04-12 11:27] LABS: RBC Urine 0-2 /hpf (0-2); Squamous Epithelial Cell Urine Few /hpf (Few); WBC Urine 0-3 /hpf (0-3)
[2025-04-12 11:28] LABS: Bacteria Urine Trace /hpf
[2025-04-12 11:29] LABS: Pregnancy On Board Control Positive; Urine Pregnancy Test Negative
[2025-04-12 11:33] LABS: Lipase 58 U/L (23-300); Magnesium 2.3 mg/dL (1.6-2.3); Uric Acid 3.3 mg/dL (2.5-7.5)
[2025-04-12 11:34] LABS: Alanine Aminotransferase 11 U/L (6-35); Albumin Level 4.5 g/dL (3.5-5.1); Alkaline Phosphatase 113 U/L (38-126); Anion Gap 5 mmol/L (4-12); Aspartate Amino Transferase 23 U/L (14-36); Bilirubin,Total 0.7 mg/dL (0.2-1.3); Blood Urea Nitrogen 6 mg/dL (7-17); Carbon Dioxide 28 mmol/L (22-30); Chloride 106 mmol/L (98-107); Estimated CRCL calculation 75 ml/min; Estimated Glomerular Filt Rate > 60; Glucose 91 mg/dL (65-110); Osmolality Calculated 285 mOsm/kg (285-295); Potassium 4.3 mmol/L (3.4-5.0); Sodium 139 mmol/L (137-145); Total Protein 8.1 g/dL (6.3-8.2)
[2025-04-12 11:35] LABS: Partial Thromboplastin Time 28.1 Sec (23.9-30.70); Prothrombin Time 10.9 Seconds (9.50-12.1)
[2025-04-12 11:36] LABS: CRP 1.3 mg/dL (<1.0)
[2025-04-12] MEDS: metroNIDAZOLE 500 MG/ISO 100ML 500 MG/100 ML BAG 100 MG IVPB (11:37)
[2025-04-12 11:45] VITALS: BP 123/75; PULSE 81; RESP 16; TEMP 36.9; O2SAT 100
[2025-04-12 12:05] LABS: Thyroid Stimulating Hormone 0.957 uIU/mL (0.465-4.680)
[2025-04-12] MEDS: levoFLOXacin 500 MG/D5W 100 ML 500 MG/100 ML BAG 100 MG IVPB (12:40)
[2025-04-12 13:40] VITALS: BP 130/81; PULSE 88; RESP 16; TEMP 37; O2SAT 100
--- NOTE | 2025-04-14 14:14 | PC.NURSE ---
Preliminary Blood Culture x 2: No growth to date
--- NOTE | 2025-04-18 12:49 | PC.NURSE ---
final blood cultures x2 reviewed. no growth after 5 days. no change in plan of care
--- NOTE | 2025-04-20 13:30 | PC.NURSE ---
final blood cultures x2 reviewed. no growth after 5 days. no change in plan of care
== END 2025-04-12 13:49 | disposition home or self-care (01) ==
PROVIDERS: Emergency Provider Internal Medicine Critical Care Medicine; PCP Physician Assistant
DX: K61.0 Anal abscess (principal); R50.9 Fever, unspecified
CPT/HCPCS: 36415; 80053; 81001; 81025; 83605; 83690; 83735; 84443; 84550; 85025; 85610; 85730; 86140; 87040; 96365; 96368; 99284; J1836; J1956

== ENCOUNTER 2025-04-13 00:41 | Day surgery (SDC) | payer OTHER, SELFPAY ==
[2025-04-13] VITALS (8 sets, daily range): BP systolic 93–117; BP diastolic 47–75; PULSE 50–79; RESP 12–16; TEMP 36.1–36.4; O2SAT 99–100; BMI 16.7; BMI 16.9
--- OUTSIDE RECORDS SUMMARY | 2025-04-13 00:45 | XMS_ITS | Clinical Summary ---
Author Organization [facility] Address [address] [place] [address] Phone Care Team Providers Care Mold Finisher Name Role Phone Kartik Mejia DO Primary [...] by mouth daily. Active ergocalciferol (VITAMIN D) 93584 UNIT CapsuleIndicati ons:MONDAYS Take 50,000 Units by [...] patient's age to complete this topic Insurance [facility] Care Teams Mold Finisher Relationship Specialty Start Date End Date Kartik Mejia DO [address] [place] [phone] PCP - General Internal Medicine 12/03/15
--- OUTSIDE RECORDS SUMMARY | 2025-04-13 00:45 | XMS_ITS | Clinical Summary ---
Author Organization [facility] Building [facility] Address [address] [place] [address] Care Team Providers Care Information Systems Security Analyst Name Role Phone Kartik Mejia DO [...] Description 04/10/2025 3:00 PM CDT Office Visit [facility] [place] [address] [place] [address] Kimberly Cardenas, SUPERINTENDENT TRACK Perianal abscess (Primary Dx) from Last 3 [...] on file Legal Sex Female 3:40 PM CUFF MATCHER Gender Identity Not on file Sexual Orientation [...] this topic Medical Devices Explanted Type Area Sample Hand Device Identifier Shelf Expiration Date Model / Serial / Lot [employer] Parks Flexi-Stent 4fr 2cm Small Pigtail Straight Flexible .025 [id number] - [id number] Explanted:Qty : 1 on 09/23/2022 at [facility] Stent N/A: Pancreas [employer] 03/22/2027 [id number] / / [id number] Procedures Procedure Name Priority Date/Time Associated Diagnosis [...] by Comment [facility] 02 Comment:[facility] Technical Information Specialist (ASCP) . . [facility] 02 Note: [...] 08/18/2022 10:09 AM CDT Performed at: - [address] [id number] Contracts Manager: Ellyn Arriaga MD, Phone: [phone] Performed at: - [facility] [id number] Contracts Manager: Ellyn Arriaga MD, Phone: [phone] Geovani Coyne MD LAB CYTOLOGY ORDERABLES Fi nal Result [facility] 02 [facility] - from Last 3 Months or Most Recently Relevant to Health Maintenance Insurance [facility] Advance Directives For more information, please contact: [phone] * Full Code (Latest Code Status on File) Date Activated Date Inactivated Comments 09/23/2022 9:18 AM 09/23/2022 4:56 PM Care Teams Information Systems Security Analyst Relationship Specialty Start Date End Date Kartik Mejia DO PCP - General 11/11/17
--- OUTSIDE RECORDS SUMMARY | 2025-04-13 00:45 | XMS_ITS | Referral Summary ---
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 Auto Collision Repair Instructor (ASCP) . . [facility] 02 Note: [...] 08/18/2022 10:09 AM CDT Performed at: - [facility] [id number] Freight Broker Agent: Ellyn Arriaga MD, Phone: [phone] Performed at: - [facility] [id number] Freight Broker Agent: Ellyn Arriaga MD, Phone: [phone] Geovani Coyne MD LAB CYTOLOGY ORDERABLES Fi nal Result [facility] 02 [facility] - 01 from Last 3 Months or Most Recently Relevant to Health Maintenance Insurance [facility] Address: [address] [address] [place] [address] [facility] Address: [address] [place] [address] [facility] Address: [facility] [id number] [place] [address] Advance Directives For more information, please contact: [phone] * Full Code (Latest Code Status on File) Date Activated Date Inactivated Comments 09/23/2022 9:18 AM 09/23/2022 4:56 PM Care Teams Coating Machine Feeder Relationship Specialty Start Date End Date Kartik Mejia DO PCP - General 11/11/17
--- OUTSIDE RECORDS SUMMARY | 2025-04-13 00:45 | XMS_ITS | Clinical Summary ---
Author Organization [facility] Address [address] [place] [address] Care Team Providers Care Plaster Tender Name Role Phone Kartik Mejia DO Primary Care Provider [phone] Source Comments [facility] and Associated Physician Practices is amultiple site organization consisting of ambulatory clinics and hospital sitesin [place], [place], [place] and [place]. This disclosure is being madepursuant to the Care Everywhere program and may not contain all information available regarding this patient. Last updated 18.[facility] Allergies Active Allergy Reactions Criticality Noted Date Comments Augmentin Urticaria Medium 08/09/2022 Bactrim Ds Other,Rash,Swelling Medium 12/05/2024 Medications * Be aware that medications may not be up to date on this document. Alwaysverify current medications with the patient. Coenzyme Q10 (CoQ10) 100 MG 100 (one hundred) mg Active Cyanocobalamin (Vitamin B 12) 100 MCG Active [place]-3 Fatty Acids (fish oil) 1000 MG capsule Fish Oil 1000 MG Oral Capsule QTY: 0 capsule Days: 0 Refills: 0 Written: 01/21/22 Patient Instructions: 2 Active vitamin D, ergocalciferol , (Drisdol) 1.25 MG (03601 UT) capsule Take 1 (one) capsule by mouth Active Adalimumab-ada z (Hyrimoz) 40 MG/0.4ML injectionIndic ations:Psoriat ic arthritis (HCC) Inject 0.4 mL subcutaneously every 14 days 0.8 mL 5 5 Active Encounters Date Type Department Care Team Description 02/10/2025 Telephone [facility] - Rheumatology [address], [address] [place] [address] Alana Araiza MD Medication Management [...] on file Legal Sex Female 5:38 AM ROOF BOLTER OPERATOR Gender Identity Not on file Sexual Orientation Not on file Last Filed Vital Signs Vital Sign Reading Time Taken Comments Blood Pressure 108/78 12/05/2024 2:44 PM ROOF BOLTER OPERATOR Pulse 90 12/05/2024 2:44 PM ROOF BOLTER OPERATOR Temperature 37.9 C (100.2 F) 12/05/2024 2:44 PM ROOF BOLTER OPERATOR Respiratory Rate 16 12/05/2024 2:44 PM ROOF BOLTER OPERATOR Oxygen Saturation 100% 12/05/2024 2:44 PM ROOF BOLTER OPERATOR Inhaled Oxygen Concentration - - Weight 52.4 kg (115 lb 9.6 oz) 12/05/2024 2:44 P M ROOF BOLTER OPERATOR Height 172.7 cm (5' 8 ) 08/09/2022 [...] SCREEN ACUTE ([facility]) Routine 12/05/2024 4:24 PM ROOF BOLTER OPERATOR Inflammatory arthritis from Last 3 Months or Most Recently Relevant to Health Maintenance Results * HEPATITIS SCREEN ACUTE ([facility]) (12/05/2024 4:24 PM ROOF BOLTER OPERATOR) Hepatitis A Virus Antibody IgM Non Reactive [...] HCV infection. Performed at: 02 - [facility] [address] [id number] Shipping And Receiving Operator: Mohit Rodriguez PhD, Phone: [phone] Interpretation Comment [facility] ACCOUNT BILL Comment: Not infected with HCV unless early or acute infection is suspected (which may be delayed in an immunocompromised individual), or other evidence exists to indicate HCV infection. Blood BLOOD SPECIMEN / Unknown 12/05/2024 4:24 PM ROOF BOLTER OPERATOR 12/05/2024 Narrative [facility] ACCOUNT BILL - 12/05/2024 11:06 PM ROOF BOLTER OPERATOR Performed at: - [facility] [address] [place], [place] [id number] Shipping And Receiving Operator: Justino Deutsch MD, Phone: [phone] us Alana Araiza MD LAB - CHEMISTRY ORDERABLES Final Result [facility] ACCOUNT BILL [address] [place] [address] from Last 3 Months or Most Recently Relevant to Health Maintenance Insurance [place] [address] MEDICAID - OUT OF [facility] [place] [address] [facility] [employer] MEDICAID [place] [address] [place] [address] Care Teams Plaster Tender Relationship Specialty Start Date End Date Kartik Mejia DO [address] [place] [phone] PCP - General Internal Medicine 08/09/22
--- NOTE | 2025-04-13 08:44 | PC.NURSE ---
Report to the Outpatient Waiting Room, entrance under the green pavilion located off [facility], at time _1200_ on date _[id number]_. Planned Procedure Time: _2pm_.? Time changes happen often and if your time is changed the preop area will call you the afternoon before. - You and your visitor will be asked to self-screen and do not enter if you have any COVID symptoms. Please call surgeon if you need to reschedule. - A mask is optional within the hospital at this time. Patients may have clear liquids (water, carbonated beverages, clear teas, apple juice) until 3 hours prior to surgery with a maximum of 20 ounces. - No food from midnight until time of surgery and no smoking, or chewing tobacco (or any form of nicotine). No chewing gum, candy or mints. Take only the following medications with a SIP of water on the morning of surgery: ___Cipro, Metronidazole and hydrocodone____ DO NOT STOP ANY OF YOUR OTHER PRESCRIPTION MEDICATIONS PRIOR TO SURGERY EXCEPT THE FOLLOWING Hold all vitamins and supplements for 3 days per anesthesiologist. Medications to discontinue per physician Date to take last dose Please no make-up, nail libyan, hairspray, perfume, deodorant, or body powder the day of surgery.? No jewelry (including any body piercings) or valuables the day of surgery, leave them at home.? Please take a shower or bath the night before, or the morning of, surgery with an antibacterial soap.? Wear comfortable, loose fitting clothing.? - Jewelry must be removed prior to entering the operating room.? Rings and piercings that are not removed may be cut off. - The hospital will not accept responsibility for valuables.? - Please leave all valuables, including medications, at home the day of surgery. If you are going home after surgery, a licensed public transit trolley driver must drive you home.? - NO public transportation without another adult if you receive anesthesia. - We recommend that an adult stay with you for 24 hours following discharge. - We also recommend that you do not drive, make important decision, drink alcoholic beverages, or take any drugs that were not prescribed by your health care provider for at least 24 hours after your discharge time. Follow any additional instructions given to you from your surgeon. Telephone instructions given to __Elyse___and asked if any additional questions and then verbalized understanding. Patient advised to call surgeon office or pre surgery nurse liaison [phone] if any additional questions.
[2025-04-13] MEDS: ACETAMINOPHEN 500 MG TABLET 1000 MG PO (12:56)
[2025-04-13] MEDS: KETOROLAC 15 MG/ML VIAL (*BKC) IV PUSH (12:56)
[2025-04-13] MEDS: LACTATED RINGERS 1,000 ML 30 ML IV CONT ×2 (13:00→15:23)
--- NOTE | 2025-04-13 13:09 | WPDHPUPDATE1 ---
History and Physical Update Update Date/Time: 04/13/25 13:09 History and Physical has been reviewed, including an updated exam of the patient. There are NO changes in the patient's condition. Risks, benefits, and alternatives have been discussed and questions answered. Patient agrees to proceed with procedure.
--- NOTE | 2025-04-13 13:10 | WPDHPUPDATE1 ---
History and Physical Update Update Date/Time: 04/13/25 13:10 History and Physical has been reviewed, including an updated exam of the patient. There are NO changes in the patient's condition. Risks, benefits, and alternatives have been discussed and questions answered. Patient agrees to proceed with procedure.
--- NOTE | 2025-04-13 14:21 | P.PNAN_ITS ---
Anes - Initial Pre Proc Eval Procedure: Operation Date: 04/13/25 14:00 Proposed Procedures p Incision and Drainage of [place]-Rectal Abscess - Rodri Williamson MD Date/Time: 04/13/25 14:21 Surgeon: Rodri Williamson MD Pre Op Diagnosis: perirectal abscess Patient Data Age: 34 Gender: F Height: 1.73 m Weight: 50.5 kg Last Vital Signs Temp 36.4 C 04/13/25 12:54 Pulse 79 04/13/25 12:54 BP 117/75 04/13/25 12:54 Pulse Ox 100 04/13/25 12:54 O2 Del Method Room Air 04/13/25 12:54 Allergies Allergy/AdvReac Type Severity Reaction Status Date / Time sulfamethoxazole (From Allergy Severe Swelling Verified 04/13/25 12:48 Bactrim) trimethoprim (From Bactrim) Allergy Severe Swelling Verified 04/13/25 12:48 amoxicillin (From Augmentin) Allergy Rash Verified 04/13/25 12:48 clavulanic acid (From Allergy Rash Verified 04/13/25 12:48 Augmentin) Home Medications ?Medication ?Instructions ?Recorded ?Confirmed ?Type melatonin 5 mg tablet 5 mg PO HS PRN Sleep 08/01/24 04/13/25 History ciprofloxacin HCl 500 mg tablet 500 mg PO Q12H #14 tabs 04/12/25 04/13/25 Rx (Cipro) hydrocodone 5 mg-acetaminophen 325 1 - 2 tablet PO Q6H PRN pain #25 04/12/25 04/13/25 Rx mg tablet tabs metronidazole 500 mg tablet 500 mg PO Q8H 7 days #21 tabs 04/12/25 04/13/25 Rx vitamin B complex 1 tablet PO DAILY 04/13/25 04/13/25 History vitamin D3 125 mcg (5,000 1 cap PO DAILY 04/13/25 04/13/25 History unit)-vitamin K2 100 mcg capsule Patient hx anesthesia problems: none Family hx anesthesia problems: none Results Review: All pre-operative results and documents have been reviewed as part of the pre- operative evaluation. [facility] Past Medical History Medical History (Updated 04/13/25 @ 14:25 by José Bo DO) Fratun-Danlos disease Psoriasis Pancolitis Hemorrhoids HPV (human papilloma virus) anogenital infection Positive ELIZABETH (antinuclear antibody) Family History Family History Son Ulcerative colitis Social History Social History Social History: smoker Years smoked: 10 Smoking status: Current every day smoker Tobacco type: cigarettes Living arrangements: with family Spiritual care concerns: No Anes - Eval Final PreProcedure Day of Procedure 04/13/25 14:21 Patient weight: normal Heart: regular rate and rhythm Lungs: clear to auscultation and normal air movement Airway: Mallampati scale class II Neurological: alert and oriented Last oral intake: >/= 8 hours ASA classification: II Emergent: no Anesthetic plan: proceed Anesthesia type and monitoring: general LMA and standard monitoring Results Review: All pre-operative results and documents have been reviewed as part of the pre- operative evaluation. Informed Consent: The patient's anesthetic plan and its attendant risks and benefits were discussed with the patient/family/POA. Questions were solicited and answers provided to the satisfaction of the patient/family/POA.
[2025-04-13] MEDS: ceFAZolin 2 GM/D5W 50 ML 2 GM/50 ML BAG IVPB (14:41)
[2025-04-13] MEDS: BUPIVACAINE/EPINEPHRINE 0.5% 50 ML VIAL 30 ML INFILTRATE (15:10)
--- NOTE | 2025-04-13 15:32 | P.OP_ITS ---
Procedure Note - Detailed Date of Procedure 04/13/25 Pre-op Diagnosis Perirectal abscess Post-op Diagnosis Same Procedure Performed Incision and drainage of perirectal abscess Surgeon Rodri Williamson MD Grade Teacher Ambreen CATHERINE-student Anesthesia General Indications Patient 34-year-old female who added to the office yesterday with complaints of increasing perianal pain for the past several days. She has never had a perirectal abscess in the past. She started having some drainage of the abscess yesterday but was still having significant pain and significant amounts of drainage. She presents today to the operating room for formal incision and drainage of the perirectal abscess as an outpatient. Findings Just to left of the posterior midline at approximately the 11 o'clock position with the patient prone was a 3x2cm area of fluctuance around the anal verge consistent with a perirectal abscess. There was a small 1 to 2 mm opening in the skin already allowing drainage of the abscess. There were multiple skin perianal skin tags. Circumferential evaluation of the anal canal with a nasal speculum in place did not reveal any evidence of a [id number]-bqa. There was no tracking of the abscess cavity anteriorly. Description of Procedure After informed consent was obtained patient brought to the operating room she was placed supine position and general LMA anesthesia was administered. The legs were then placed in high cane stirrups. This exposed the perianal and perineal regions. This area was then prepped and draped usual sterile fashion. Time-out was then performed correctly identifying the patient as well as procedure to be performed. She was given perioperative IV antibiotics. I 1st started by palpating the area of maximal fluctuance. It was approximately the 5 o'clock position just to the left posterior midline when she was in lithotomy. I placed an anal speculum into the anal canal gently dilated the anal sphincters. Circumferential evaluation of the anal canal and a distal rectum revealed no evidence of anal polyps. Palpation of the anal canal just inside the anal opening at the level the anal crypts did not reveal any evidence of a anal fistula. A lacrimal probe was used to evaluate for no fistula no fistula opening was found internally. I then proceeded to use a scalpel and performed radial incision over the area of maximal fluctuance. This is probably 2cm length incision. This opened the skin over the abscess and a small amount of purulent drainage was noted. I then placed my index finger into the abscess cavity and broke down any loculations. There was no extension of the abscess medially or laterally towards the anterior midline. I then irrigated out the abscess cavity sterile saline solution. Hemostasis was achieved utilized electrocautery. The wound was then packed with quarter-inch iodoform gauze to achieve hemostasis. Approximately a foot of gauze was used. I then injected the area around the abscess cavity with 1% lidocaine mixed with 0.5% Marcaine with some epinephrine. Another 10cc of the local anesthetic mixture was then injected for a left pudendal nerve block. The areas then cleaned and then fluffed 4x4 gauze ABD pad and disposable underwear was used for final dressing. The patient tolerated the procedure well no complications. All sponges, needles, and instrument counts were correct at the end procedure. EBL was _10__cc. The patient was awakened and taken to recovery in stable and satisfactory condition. Implants None Estimated Blood Loss 10 Drains No Packing Yes (Quarter-inch iodoform gauze perirectal abscess cavity) Pathology None sent Complications No immediate complications Condition Stable Disposition PACU [facility] Billing Surgery - Charge Forward: Surgery Billing
== END 2025-04-13 16:45 | disposition home or self-care (01) ==
PROVIDERS: PCP Physician Assistant; Visit Provider Surgery
PROC: (CPT 46040; principal; 2025-04-13 14:00)
DX: K61.1 Rectal abscess (principal); F17.210 Nicotine dependence, cigarettes, uncomplicated
CPT/HCPCS: 45005; A9270; J0690; J1100; J1885; J2004; J2250; J2405; J2704; J3010; J7120